=== PATIENT | male | born 1955 | race Hispanic/Latino ===

== ENCOUNTER 2018-12-04 16:05 | Inpatient (IN) | payer MEDICARE ==
[2018-12-04] MEDS ORDERED: NACL 0.9% 500 ML 500 ML IV ONE (17:06)
[2018-12-04 17:35] LABS: Hematocrit 37.5 % (35.5-45.6); Hemoglobin 12.7 gm/dl (11.8-15.2); Mean Corpuscular HGB Conc 34 % (32-34); Mean Corpuscular Volume 90 fl (84-94); Platelet Count 157 K/mm3 (140-440); Red Blood Count 4.19 M/mm3 (3.65-5.03); Red Cell Distribution Width 14.7 % (13.2-15.2)
[2018-12-04 17:54] LABS: INR 0.99 (0.87-1.13)
--- NOTE | 2018-12-04 17:57 | XRay Report ---
PROCEDURE: XR CHEST 1V AP TECHNIQUE: Chest radiograph single view. HISTORY: syncope COMPARISONS: None . FINDINGS: Limited examination due to prominent soft tissue attenuation. Posterior lung bases partly obscured. There is no visible pulmonary consolidation. No evidence of pneumothorax. No radiographically visible pleural effusion. Cardiac silhouette size is normal without vascular congestion. No visible acute displaced fracture in the regional skeleton. IMPRESSION: No acute cardiopulmonary disease in the visualized chest. This document is electronically signed by Ulysses Durbin MD., December 04 2018 05:55:29 PM ET
[2018-12-04 17:58] LABS: Albumin 3.7 g/dL (3.9-5); Calcium 9.1 mg/dL (8.4-10.2)
--- NOTE | 2018-12-04 18:13 | Cat Scan Report ---
PROCEDURE: CT HEAD/BRAIN WO CON TECHNIQUE: Computerized tomography of the head was performed without contrast material. CT DOSE LENGTH PRODUCT: 920.5 mGycm HISTORY: neck pain after fall COMPARISONS: None . FINDINGS: Skull and scalp: Normal . Paranasal sinuses: Normal . Ventricles and subarachnoid spaces: Normal . Cerebrum: No evidence of hemorrhage, acute infarction or mass . There is an area of low density in t he left frontal region periventricular white matter consistent with small vessel ischemic changes. Th ere are small areas of remote infarct in the occipital lobes bilaterally. Cerebellum and brainstem: No evidence of hemorrhage, acute infarction or mass . Vasculature: Normal . Other: None . ASPECTS: 10 IMPRESSION: No acute intracranial abnormality. Small areas of remote infarct or small vessel ischemic changes as described. This document is electronically signed by Shital Leroy MD., December 04 2018 06:11:47 PM ET
--- NOTE | 2018-12-04 18:22 | Emergency Department Report ---
ED General Adult HPI - General Chief complaint: Weakness Stated complaint: WEAKNESS Time Seen by Provider: 12/04/18 16:48 Source: patient, EMS (ems notes not available at time of chart dictation), RN notes reviewed, old records reviewed Mode of arrival: Stretcher Limitations: Other (the patient is a poor historian.) - History of Present Illness Initial comments: Primary care Dr.: Dr. 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 This is a 63-year-old gentleman. The patient is not known to this provider previously. The patient presents to the emergency room with a complaint of weakness. He describes the weakness as mostly painless, and present for 3-4 weeks. He reports that occasionally he feels drowsy, and has difficulty finding words. He denies extremity weakness or numbness. He denies chest pain. He denies shortness of breath. He has chronic abdominal discomfort which is not a new, worsened or different. He denies urinary symptoms. He also complains of aches and pains in his bilate ral shoulders, elbows, hips, lower back, knees and ankles. He reports that his insurance company sent a nurse to evaluate him at home, this past Monday, and reports that her evaluation was unremarkable. The patient is not able to describe exacerbating or relieving factors. He also states that over the weekend, he was standing in front of his bed, and either passed out, or fell onto his bed. He is not sure. He has a headache, which is global, and paraspinal neck pain. The headache is mostly resolved, and he indicates that it was not sudden or thunderclap in nature. The patient is tangential in his history, and difficult to redirect. The patient is a poor historian. -: week(s) Location: left, right, upper extremity Radiation: non-radiation Quality: aching Consistency: intermittent Improves with: rest Worsens with: movement - Related Data Home Medications Medication Instructions Recorded Confirmed Last Taken Fluticasone Propionate [Flovent 50 mcg IH PRN 12/04/18 12/04/18 Unknown Diskus] Lisinopril/Hydrochlorothiazide 1 each PO DAILY 12/04/18 12/04/18 Unknown [Zestoretic 10-12.5 mg Tablet] Metoprolol [Lopressor TAB] 50 mg PO BID 12/04/18 12/04/18 Unknown Pravastatin [Pravachol] 20 mg PO DAILY 12/04/18 12/04/18 Unknown QUEtiapine [SEROquel] 100 mg PO HS 12/04/18 12/04/18 Unknown Tamsulosin [Flomax] 0.4 mg PO QDAY 12/04/18 12/04/18 Unknown Venlafaxine ER 150 mg PO DAILY 12/04/18 12/04/18 Unknown rOPINIRole [Requip] 1 mg PO QHS 12/04/18 12/04/18 Unknown Allergies Allergy/AdvReac Type Severity Reaction Status Date / Time No Known Allergies Allergy Verified 12/04/18 20:26 ED Review of Systems ROS: Stated complaint: WEAKNESS Other details as noted in HPI Constitutional: malaise. denies: fever Eyes: other (patient is blind. No change in visual acuity.) ENT: denies: epistaxis Respiratory: denies: cough Cardiovascular: denies: chest pain Gastrointestinal: denies: nausea, vomiting, diarrhea Genitourinary: denies: dysuria Musculoskeletal: arthralgia, myalgia Neurological: headache Psychiatric: anxiety ED Past Medical Hx - Past Medical History Previous Medical History?: Yes Hx Hypertension: Yes Additional medical history: high cholesterol. wrestless leg syndrome. BPH - Surgical History Past Surgical History?: Yes Additional Surgical History: knee surgery - Social History Smoking Status: Never Smoker Substance Use Type: None - Medications Home Medications: Home Medications Medication Instructions Recorded Confirmed Last Taken Type Fluticasone Propionate [Flovent 50 mcg IH PRN 12/04/18 12/04/18 Unknown History Diskus] Lisinopril/Hydrochlorothiazide 1 each PO DAILY 12/04/18 12/04/18 Unknown History [Zestoretic 10-12.5 mg Tablet] Metoprolol [Lopressor TAB] 50 mg PO BID 12/04/18 12/04/18 Unknown History Pravastatin [Pravachol] 20 mg PO DAILY 12/04/18 12/04/18 Unknown History QUEtiapine [SEROquel] 100 mg PO HS 12/04/18 12/04/18 Unknown History Tamsulosin [Flomax] 0.4 mg PO QDAY 12/04/18 12/04/18 Unknown History Venlafaxine ER 150 mg PO DAILY 12/04/18 12/04/18 Unknown History rOPINIRole [Requip] 1 mg PO QHS 12/04/18 12/04/18 Unknown History ED Physical Exam - General Limitations: Other (patient is a poor historian. Patient is legally blind.) General appearance: alert, anxious, obese - Head Head exam: Present: atraumatic, normocephalic - Eye Eye exam: Present: EOMI, other (patient able to identify this examiners glasses, vela, and white coat) - ENT ENT exam: Present: normal exam, normal orophraynx, mucous membranes moist, normal external ear exam - Neck Neck exam: Present: normal inspection, full ROM. Absent: tenderness, meningismus - Respiratory Respiratory exam: Present: normal lung sounds bilaterally. Absent: respiratory distress - Cardiovascular Cardiovascular Exam: Present: regular rate, normal rhythm, normal heart sounds. Absent: bradycardia, tachycardia, irregular rhythm, systolic murmur, diastolic murmur, rubs, gallop - GI/Abdominal GI/Abdominal exam: Present: soft, other (chronic appearing surgical scar is noted. Hyperpigmented tissue is noted.). Absent: distended, tenderness, guarding, rebound, rigid, pulsatile mass - Rectal Rectal exam: Present: deferred - Extremities Exam Extremities exam: Present: normal inspection, full ROM, other (2+ pulses noted in the bilateral upper, lower extremities. Compartments soft. No long bony tenderness. The pelvis is stable.). Absent: calf tenderness - Back Exam Back exam: Present: normal inspection, full ROM. Absent: tenderness, CVA tenderness (R), CVA tenderness (L), paraspinal tenderness, vertebral tenderness - Neurological Exam Neurological exam: Present: alert, other (Extraocular movements intact. Tongue midline. No facial droop. Facial sensation intact to light touch in the V1, V2, V3 distribution bilaterally. 5 and 5 strength in 4 extremities.. Sensation is intact to light touch in 4 extremities.). Absent: motor sensory deficit - Psychiatric Psychiatric exam: Present: normal affect, normal mood, anxious - Skin Skin exam: Present: warm, dry, intact, normal color. Absent: rash ED Course Vital Signs 12/04/18 12/04/18 12/04/18 15:54 16:46 16:48 Temperature 97.9 F 97.9 F Pulse Rate 108 H 76 Respiratory 16 16 Rate Blood Pressure 115/71 Blood Pressure 129/69 [Right] O2 Sat by Pulse 99 94 Oximetry 12/04/18 12/04/18 12/04/18 17:02 17:16 17:30 Temperature Pulse Rate Respiratory Rate Blood Pressure Blood Pressure [Right] O2 Sat by Pulse 94 95 99 Oximetry 12/04/18 12/04/18 12/04/18 17:56 18:00 18:15 Temperature Pulse Rate Respiratory Rate Blood Pressure 118/79 118/79 Blood Pressure [Right] O2 Sat by Pulse 98 98 85 Oximetry 12/04/18 12/04/18 12/04/18 18:31 18:45 19:01 Temperature Pulse Rate Respiratory Rate Blood Pressure 144/86 144/86 132/58 Blood Pressure [Right] O2 Sat by Pulse 93 93 92 Oximetry 12/04/18 12/04/18 12/04/18 19:11 19:21 19:31 Temperature Pulse Rate 78 73 Respiratory 16 17 Rate Blood Pressure 132/58 132/58 132/58 Blood Pressure [Right] O2 Sat by Pulse 94 87 93 Oximetry 12/04/18 12/04/18 12/04/18 19:39 19:41 19:51 Temperature Pulse Rate 74 69 75 Respiratory 18 19 16 Rate Blood Pressure 116/56 132/58 Blood Pressure 116/56 [Right] O2 Sat by Pulse 94 90 Oximetry 12/04/18 20:01 Temperature Pulse Rate 71 Respiratory 18 Rate Blood Pressure 113/76 Blood Pressure [Right] O2 Sat by Pulse 94 Oximetry - Reevaluation(s) Reevaluation #1: 12/04/18 18:22 Differential diagnosis, including not limited to: Arthritis, fibromyalgia, myositis, medication side effect, orthostasis, vagal event, structural cardiac disease, intracranial injury, cervical spine injury, [place] II disorder Assessment and plan: 63-year-old gentleman with a primary complaint of weakness, and multiple other complaints, including intermittent word finding difficulty, nonspecific arthralgias, questionable word finding difficulty for the past 3 weeks. Objectively speaking, the patient is alert to name, location, date and month. He is able to tell me the name of his insurance company, and can tell me that a nurse came by to see him this week for his nonspecific arthralgias. He is no focal motor or sensory deficits, there is no obvious facial droop, and he has an unremarkable neurologic examination, with the exception of poor baseline vision. He is somewhat tangential in his history, but does not appear to be homicidal or suicidal, and has not demonstrated that he is not able to care for himself. He is plugged in with a good primary care doctor, and so far his objective laboratory testing and physical examination is unremarkable. I find him to be low risk by well's criteria, he is not tachycardic, he is not hypoxic, he has a negative d-dimer. Thus far, objective testing appears to be unremarkable, and it is unlikely that the patient will have an emergency medical condition that requires admission to the hospital. He will likely benefit from follow-up with an outpatient neurologist, or neuropsychiatrist for his nonspecific symptoms. Reevaluation #2: 12/04/18 18:45 Change in plans. Patient found to have acute renal insufficiency. This, in conjunction with his reported episode of syncope and fatigue, qualifies him for hospital admission and further evaluation. As far as the patient knows, he does not have a history of renal insufficiency. He now endorses additional symptoms, such as getting up at night, possibly sleepwalking, and endorses that he is seeing people at night. He is taking Ropinirole He does not meet 1013 criteria, but we will admit to the hospital for unexplained syncope, and further evaluation of acute renal insufficiency. A psychiatric consultation has been requested. The patient may benefit from having his multiple sedating medications examined. Will defer to the inpatient team. Reevaluation #3: 12/04/18 19:41 JOVANNY Yuen to admit to the medical service for kike and syncope ED Medical Decision Making - Lab Data Result diagrams: 12/05/18 05:00 12/05/18 05:00 Vital Signs 12/04/18 12/04/18 16:46 16:48 Temperature 97.9 F 97.9 F Pulse Rate 76 Respiratory 16 16 Rate Blood Pressure 115/71 Blood Pressure 129/69 [Right] O2 Sat by Pulse 99 94 Oximetry Lab Results 12/04/18 12/04/18 12/04/18 Range/Units 17:19 17:19 17:19 WBC 4.8 (4.5-11.0) K/mm3 RBC 4.19 (3.65-5.03) M/mm3 Hgb 12.7 (11.8-15.2) gm/dl Hct 37.5 (35.5-45.6) % MCV 90 (84-94) fl MCH 30 (28-32) pg MCHC 34 (32-34) % RDW 14.7 (13.2-15.2) % Plt Count 157 (140-440) K/mm3 PT 13.7 (12.2-14.9) Sec. INR 0.99 (0.87-1.13) D-Dimer 135.00 (0-234) ng/mlDDU Sodium 138 (137-145) mmol/L Potassium 4.3 (3.6-5.0) mmol/L Chloride 97.5 L (98-107) mmol/L Carbon Dioxide 29 (22-30) mmol/L Anion Gap 16 mmol/L Glucose 75 (75-100) mg/dL Calcium 9.1 (8.4-10.2) mg/dL Magnesium 1.90 (1.7-2.3) mg/dL Total Bilirubin 0.70 (0.1-1.2) mg/dL AST 20 (5-40) units/L Alkaline Phosphatase 87 (35-129) units/L Total Protein 6.6 (6.3-8.2) g/dL Albumin 3.7 L (3.9-5) g/dL Albumin/Globulin Ratio 1.3 % TSH (0.270-4.200) mlU/mL 12/04/18 Range/Units 17:19 WBC (4.5-11.0) K/mm3 RBC (3.65-5.03) M/mm3 Hgb (11.8-15.2) gm/dl Hct (35.5-45.6) % MCV (84-94) fl MCH (28-32) pg MCHC (32-34) % RDW (13.2-15.2) % Plt Count (140-440) K/mm3 PT (12.2-14.9) Sec. INR (0.87-1.13) D-Dimer (0-234) ng/mlDDU Sodium (137-145) mmol/L Potassium (3.6-5.0) mmol/L Chloride (98-107) mmol/L Carbon Dioxide (22-30) mmol/L Anion Gap mmol/L Glucose (75-100) mg/dL Calcium (8.4-10.2) mg/dL Magnesium (1.7-2.3) mg/dL Total Bilirubin (0.1-1.2) mg/dL AST (5-40) units/L Alkaline Phosphatase (35-129) units/L Total Protein (6.3-8.2) g/dL Albumin (3.9-5) g/dL Albumin/Globulin Ratio % TSH 2.640 (0.270-4.200) mlU/mL - EKG Data -: EKG Interpreted by Mo EKG shows normal: sinus rhythm Rate: normal - EKG Data When compared to previous EKG there are: previous EKG unavailable 12/04/18 18:46 This is a normal sinus rhythm, 61 bpm, normal axis, QTC 421 ms, motion artifact, not endorsing chest pain, this is an abnormal EKG, this EKG is not consistent with ST elevation myocardial infarction. - Radiology Data Radiology results: report reviewed, image reviewed CT scan of the brain, cervical spine negative for acute traumatic disease. Multiple incidental findings noted. X-ray of the chest is negative for acute disease. Critical care attestation.: If time is entered above; I have spent that time in minutes in the direct care of this critically ill patient, excluding procedure time. ED Disposition Clinical Impression: ARF (acute renal failure), History of syncope, Polyarthritis Disposition: OP ADMIT IP TO THIS HOSP Is pt being admited?: Yes Condition: Good
--- NOTE | 2018-12-04 18:25 | Cat Scan Report ---
PROCEDURE: CT CERVICAL SPINE WO CON TECHNIQUE: Computerized tomography of the cervical spine was performed from the skull base to T1 wit hout contrast material. CT DOSE LENGTH PRODUCT: 823.2 mGycm HISTORY: ? syncope headache COMPARISONS: None . FINDINGS: There is mild reversal of the normal lordotic curve of the cervical spine. There is loss of height of the C3 and C4 vertebra. There is the appearance of ankylosis of the C5-C7 vertebra with ossification of the anterior and post erior longitudinal ligaments at these levels. There is loss of height of the C7-T1 disc with associated degenerative endplate change. This is the l evel below the ankylosis. There is multiple level degenerative facet change. There is multiple level bony canal and foraminal stenosis secondary to spondylitic change. Visualization of detail of the contents of the cervical canal is limited by artifact. There is no definite plain film evidence of acute fracture. There is mild anterolisthesis of C4 on C5 secondary to degenerative facet change at this level. The paraspinous soft tissues are unremarkable. IMPRESSION: 1. Cervical spondylosis with multiple level canal and foraminal stenosis. 2. 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 3. Loss of height of the C3 and C4 vertebra without definite plain film evidence of acute fracture. MRI may be helpful for further evaluation. This document is electronically signed by Falguni Campo MD., December 04 2018 06:22:54 PM ET
[2018-12-04] MEDS ORDERED: TYLENOL PO ONE (18:48)
[2018-12-04 19:13] LABS: Bilirubin,Urine NEG (Negative); Blood,Urine NEG (Negative); Color,Urine Yellow (Yellow); Mucus,Urine FEW /HPF; Protein,Urine <15 mg/dL mg/dL (Negative)
[2018-12-04] MEDS ORDERED: SODIUM CHLORIDE FLUSH SYRINGE 10 ML IV PRN ×2 (20:10→20:12)
[2018-12-04] MEDS ORDERED: ZOFRAN IV PRN (20:10)
[2018-12-04] MEDS ORDERED: TYLENOL PO PRN (20:10)
[2018-12-04] MEDS ORDERED: PROVENTIL IH PRN (20:21)
--- NOTE | 2018-12-04 21:15 | History and Physical Report ---
History of Present Illness Date of examination: 12/04/18 Date of admission: 12/04/2018 Chief complaint: Generalized weakness and syncope History of present illness: 60-year-old male with history of hypertension, BPH, HLD, anxiety presents to [facility] ED via EMS with complaints of weakness. He states that he's been experiencing generalized weakness for past 3-4 weeks with questionable syncopal episodes. He states that he's been experiencing increased difficulty finding words to express himself. Of note there is a questionable psychiatric history for this patient. Current meds include: Seroquel, Requip, and venlafaxine. Patient states that he has insomnia, sleep walks, and is able to 3- 4 people in an empty room. Patient is a poor historian and is unable to provide specific details. Denies dyspnea, chest pain, cough, hemoptysis, headache, nausea, vomiting, fever, recent travel, or recent sick contact Past History Past Medical History: hypertension, hyperlipidemia, other (BPH, anxiety, restless leg syndrome) Past Surgical History: Other (renal surgery, hernia repair, knee surgery) Social history: no significant social history Family history: no significant family history Medications and Allergies Allergies Allergy/AdvReac Type Severity Reaction Status Date / Time No Known Allergies Allergy Verified 12/04/18 20:26 Home Medications Medication Instructions Recorded Confirmed Last Taken Type Fluticasone Propionate [Flovent 50 mcg IH PRN 12/04/18 12/04/18 Unknown History Diskus] Lisinopril/Hydrochlorothiazide 1 each PO DAILY 12/04/18 12/04/18 Unknown History [Zestoretic 10-12.5 mg Tablet] Metoprolol [Lopressor TAB] 50 mg PO BID 12/04/18 12/04/18 Unknown History Pravastatin [Pravachol] 20 mg PO DAILY 12/04/18 12/04/18 Unknown History QUEtiapine [SEROquel] 100 mg PO HS 12/04/18 12/04/18 Unknown History Tamsulosin [Flomax] 0.4 mg PO QDAY 12/04/18 12/04/18 Unknown History Venlafaxine ER 150 mg PO DAILY 12/04/18 12/04/18 Unknown History rOPINIRole [Requip] 1 mg PO QHS 12/04/18 12/04/18 Unknown History Active Meds: Active Medications Acetaminophen (Tylenol) 650 mg PO Q4H PRN PRN Reason: Pain MILD(1-3)/Fever >100.5/SANTANA Albuterol (Proventil) 2.5 mg IH Q4HRT PRN PRN Reason: Shortness Of Breath Aspirin (Baby Aspirin) 81 mg PO QDAY [facility] Budesonide (Pulmicort) 0.5 mg IH Q12HRT [facility] Heparin Sodium (Porcine) (Heparin) 5,000 unit SUB-Q Q12HR [facility] Sodium Chloride (Nacl 0.9% 1000 Ml) 1,000 mls @ 125 mls/hr IV DIRECT [facility] Metoprolol Tartrate (Lopressor) 50 mg PO BID [facility] Ondansetron HCl (Zofran) 4 mg IV Q8H PRN PRN Reason: Nausea And Vomiting Oxycodone/Acetaminophen (Percocet 5/325) 1 tab PO Q6H PRN PRN Reason: Pain, Moderate (4-6) Pravastatin Sodium (Pravachol) 20 mg PO DAILY [facility] Quetiapine Fumarate (Seroquel) 100 mg PO HS [facility] Ropinirole HCl (Requip) 1 mg PO QHS [facility] Sodium Chloride (Sodium Chloride Flush Syringe 10 Ml) 10 ml IV BID [facility] Sodium Chloride (Sodium Chloride Flush Syringe 10 Ml) 10 ml IV PRN PRN PRN Reason: LINE FLUSH Sodium Chloride (Sodium Chloride Flush Syringe 10 Ml) 10 ml IV PRN PRN PRN Reason: LINE FLUSH Tamsulosin HCl (Flomax) 0.4 mg PO QDAY [facility] Venlafaxine HCl (Effexor Xr) 75 mg PO QDAY [facility] Review of Systems All systems: negative (reviewed and no additional remarkable complaints except as noted below) Constitutional: weakness Psychiatric: change in sleep habits, sleep disturbances, insomnia Exam - Physical Exam Narrative exam: Physical exam General appearance: Present: No acute distress, alert, oriented to person, place, self and situation, - EENT Eyes: Present: PERRL, EOM intact ENT: hearing intact, normal dentition - Neck Neck: Present: supple, normal ROM - Respiratory Respiratory effort: Non-labored Respiratory: Clear throughout - Cardiovascular Heart rate: 61 (bpm) Rhythm: regular Heart Sounds: Present: S1 & S2. Absent: rub, click - Extremities Extremities: no ischemia, pulses intact, - Peripheral Assessment Peripheral Pulses: within normal limits - Abdominal General gastrointestinal: soft, non-tender, normal bowel sounds, surgical scar noted partially healed with areas of chronically delayed wound healing - Integumentary Integumentary: Present: warm, dry - Musculoskeletal Musculoskeletal: generalized weakness - Psychiatric Psychiatric: Poor historian, cooperative - Constitutional Vitals: Temp Pulse Resp BP Pulse Ox 97.9 F 74 18 116/56 92 12/04/18 16:48 12/04/18 19:39 12/04/18 19:39 12/04/18 19:39 12/04/18 19:01 Results - Labs CBC & Chem 7: 12/04/18 17:19 12/04/18 17:19 Labs: Laboratory Last Values WBC 4.8 K/mm3 (4.5-11.0) 12/04/18 17: RBC 4.19 M/mm3 (3.65-5.03) 12/04/18 17:19 Hgb 12.7 gm/dl (11.8-15.2) 12/04/18 17:19 Hct 37.5 % (35.5-45.6) 12/04/18 17:19 MCV 90 fl (84-94) 12/04/18 17:19 MCH 30 pg (28-32) 12/04/18 17: MCHC 34 % (32-34) 12/04/18 17:19 RDW 14.7 % (13.2-15.2) 12/04/18 17:19 Plt Count 157 K/mm3 (140-440) 12/04/18 17: PT 13.7 Sec. (12.2-14.9) 12/04/18 17:19 INR 0.99 (0.87-1.13) 12/04/18 17:19 135.00 ng/mlDDU (0-234) 12/04/18 17:19 Sodium 138 mmol/L (137-145) 12/04/18 17:19 Potassium 4.3 mmol/L (3.6-5.0) 12/04/18 17:19 Chloride 97.5 mmol/L (98-107) L 12/04/18 17:19 Carbon Dioxide 29 mmol/L (22-30) 12/04/18 17:19 16 mmol/L 12/04/18 17:19 BUN 29 mg/dL (9-20) H 12/04/18 17:19 2.4 mg/dL (0.8-1.5) H 12/04/18 17:19 Estimated GFR 27 ml/min 12/04/18 17:19 12 % 12/04/18 17:19 Glucose 75 mg/dL (75-100) 12/04/18 17:19 Calcium 9.1 mg/dL (8.4-10.2) 12/04/18 17:19 Magnesium 1.90 mg/dL (1.7-2.3) 12/04/18 17:19 0.70 mg/dL (0.1-1.2) 12/04/18 17:19 AST 20 units/L (5-40) 12/04/18 17:19 ALT 25 units/L (7-56) 12/04/18 17:19 87 units/L (35-129) 12/04/18 17:19 133 units/L (55-170) 12/04/18 17:19 6.6 g/dL (6.3-8.2) 12/04/18 17:19 3.7 g/dL (3.9-5) L 12/04/18 17:19 1.3 % 12/04/18 17:19 TSH 2.640 mlU/mL (0.270-4.200) 12/04/18 17:19 Yellow (Yellow) 12/04/18 18:40 Clear (Clear) 12/04/18 18:40 5.0 (5.0-7.0) 12/04/18 18:40 Ur Specific [place] 1.014 (1.003-1.030) 12/04/18 18:40 <15 mg/dl mg/dL (Negative) 12/04/18 18:40 Neg mg/dL (Negative) 12/04/18 18:40 Neg mg/dL (Negative) 12/04/18 18:40 Neg (Negative) 12/04/18 18:40 Neg (Negative) 12/04/18 18:40 Neg (Negative) 12/04/18 18:40 4.0 mg/dL (<2.0) 12/04/18 18:40 Ur Leukocyte Esterase Neg (Negative) 12/04/18 18:40 1.0 /HPF (0.0-6.0) 12/04/18 18:40 1.0 /HPF (0.0-6.0) 12/04/18 18:40 U Epithel Cells (Auto) < 1.0 /HPF (0-13.0) 12/04/18 18:40 Few /HPF 12/04/18 18:40 - Imaging and Cardiology EKG: image reviewed (sinus rhythm, 61 bpm) Chest x-ray: image reviewed (No acute cardiopulmonary abnormalities) CT Scan - head: report reviewed (No acute intracranial abnormality. Small areas of remote infarct or small vessel ), image reviewed Imaging and Cardiology: CT Cervical Spine: Findings : Cervical spondylosis with multiple level canal and foraminal stenosis. 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 Loss of height of the C3 and C4 vertebra without definite plain film evidence of acute fracture Assessment and Plan Assessment and plan: 60-year-old male with history of hypertension, BPH, HLD, anxiety presents to [facility] ED via EMS with complaints of weakness. Patient has questi onable psychiatric history and is on multiple antipsychotic medication. Patient states that he sleep walks and can see 3-4 student people in the room at the time. He is able to watch TV when it is turned off and recall the entire program viewed. CT head did not reveal any acute intracranial abnormalities. Patient was found he can acute renal failure with BUN/CR of 29/2.4. Will admit as OBS to Telemetry for further evaluation. ARF Syncope Hypertension BPH HLD Anxiety Suspicion of psychiatric disorder Plan: Continue supportive care Neurochecks per protocol Continuous Telemetry monitoring Gentle hydration with IVF; if no improvement will consider consult to nephrology Bilateral carotid duplex, echo, Lexiscan pending Monitor BP Metoprolol 50 mg twice a day Resume home dose Flomax Resume home meds: Seroquel, Requip, venlafaxine Start ASA 81mg Resume home statin: Pravastatin 20mg daily Psych consult pending PT/OT consult pending DVT on heparin and SCD's Advance Directives: No VTE prophylaxis?: Mechanical Plan of care discussed with patient/family: Yes
[2018-12-04] MEDS: HEPARIN SUB-Q SCH (22:12)
[2018-12-04] MEDS: LOPRESSOR PO SCH (22:12)
[2018-12-04] MEDS: REQUIP PO SCH (22:12)
[2018-12-04] MEDS: NACL 0.9% 1000 ML 1,000 ML IV SCH (22:12)
[2018-12-04] MEDS: SODIUM CHLORIDE FLUSH SYRINGE 10 ML IV SCH (22:13)
[2018-12-05] MEDS: NACL 0.9% 1000 ML 1,000 ML IV SCH ×2 (05:20→23:53)
[2018-12-05 06:51] LABS: Eosinophils # (Auto) 0.1 K/mm3 (0.0-0.4); Eosinophils % (Auto) 3.6 % (0.0-4.3); Hematocrit 39.4 % (35.5-45.6); Hemoglobin 13.2 gm/dl (11.8-15.2); Lymphocytes # (Auto) 1.3 K/mm3 (1.2-5.4); Lymphocytes % (Auto) 33.9 % (13.4-35.0); Mean Corpuscular HGB Conc 34 % (32-34); Mean Corpuscular Volume 89 fl (84-94); Monocytes # (Auto) 0.4 K/mm3 (0.0-0.8); Monocytes % (Auto) 9.6 % (0.0-7.3); Red Blood Count 4.41 M/mm3 (3.65-5.03); Red Cell Distribution Width 14.9 % (13.2-15.2)
[2018-12-05 07:39] LABS: Calcium 8.7 mg/dL (8.4-10.2); Chol/HDL Ratio 4.12 %
[2018-12-05 08:12] LABS: Platelet Count 138 K/mm3 (140-440)
[2018-12-05] MEDS ORDERED: LEXISCAN IV ONE ×3 (08:45→10:32)
[2018-12-05] MEDS: PULMICORT IH SCH ×2 (09:05→19:52)
[2018-12-05] MEDS ORDERED: EFFEXOR XR PO SCH (10:00)
--- NOTE | 2018-12-05 11:30 | XRay Report ---
Chest 2 views: Compared to 64/. History: Shortness of breath. Findings: Cardiomegaly. Trachea is midline. No consolidation, pneumothorax or pleural effusions. Impression No acute cardiopulmonary findings.
--- NOTE | 2018-12-05 12:30 | Vascular Lab Report ---
PROCEDURE: VL CAROTID DUPLEX BILAT TECHNIQUE: Duplex Doppler ultrasound examination of the cervical arteries bilaterally. Note: Measurement of carotid stenosis is based on flow velocity values that correlate with the [place] Symptomatic Carotid Endarterectomy Trial (NASCET) based stenosis criteria using the internal carotid artery diameter as the denominator for stenosis calculation. HISTORY: syncope COMPARISONS: None FINDINGS: Echogenic plaque is slight without evidence of ulceration in the carotid artery system bilaterally. Peak systolic CCA and ICA velocities are within normal limits bilaterally corresponding to estimated diameter stenosis of 16 to 49 %. ICA/CCA peak systolic ratios are within normal limits: Right: 0.51 Left: 0.70 Flow is antegrade in both vertebral arteries. No evidence of aneurysm or occlusion. IMPRESSION: Bilateral carotid artery atherosclerotic change No hemodynamically significant stenosis (<50% diameter) based on ratios, velocities, and color Dopple r images. This document is electronically signed by Ulysses Durbin MD., December 05 2018 12:28:27 PM ET
--- NOTE | 2018-12-05 13:54 | Treadmill Report ---
LEXISCAN STRESS TEST REPORT REASON FOR STUDY: Chest pain. STRESS TEST PROTOCOL: The patient received 0.4 mg of Lexiscan intravenously over 10 seconds. Tc-99m tetrofosmin was subsequently injected. Baseline ECG, normal sinus rhythm. Lexiscan ECG, no ischemic changes. No chest pain. No arrhythmias. IMPRESSION: Electrocardiographically negative stress test. Nuclear imaging report to follow. JOB# [id number] DELBERT/NTS
--- NOTE | 2018-12-05 14:03 | Consultation ---
History of Present Illness - Reason for Consult Consult date: 12/05/18 Reason for consult: Initial Psychiatric Evaluation - Chief Complaint Chief complaint: " I was in a lot pain all over my body" - History of Present Psychiatric Illness Patient is a 63 year old male who presents to [facility] with complaints of weakness. He states that he's been experiencing generalized weakness for the past 3-4 weeks with questionable syncopal episodes. Patient has a PMH of hypertension, BPH, and HLD. Psychiatry was consulted because of visual hallucinations. Per record patient states that he can see people. Today the patient is calm and cooperative during the assessment. PPHx MDD (2015). Patient reports that he was diagnosed with depression after his in 2016. Patient endorses anhedonia, decrease energy, decrease appetite, decrease sleep, visual/auditory hallucinations. Per patient his symptoms have been o ngoing for approximately 3 years. Patient denies SI/HI's and delusions. Current Psychiatric Medications: Effexor XR 150mg po QAM depression/anxiety- compliant, Seroquel 100mg po QHS mood/psychosis- compliant . Provider seen patient prescription bottles. Past Psychiatric History: MDD (2016) ; no inpatient psychiatric hospitalizations ; no previous suicide attempts; no outpatient psychiatrist. Past Medication Trials: " No other psychiatric medication other than Gabapentin- I stopped taking it because it made me feel weird. " History of Drug/ Alcohol Abuse: Patient denies. 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 Family History of Psychiatric Illness/Substance Abuse: Patient denies. Medications and Allergies Allergies Allergy/AdvReac Type Severity Reaction Status Date / Time No Known Allergies Allergy Verified 12/04/18 20:26 Home Medications Medication Instructions Recorded Confirmed Last Taken Type Fluticasone Propionate [Flovent 50 mcg IH PRN 12/04/18 12/04/18 Unknown History Diskus] Lisinopril/Hydrochlorothiazide 1 each PO DAILY 12/04/18 12/04/18 Unknown History [Zestoretic 10-12.5 mg Tablet] Metoprolol [Lopressor TAB] 50 mg PO BID 12/04/18 12/04/18 Unknown History Pravastatin [Pravachol] 20 mg PO DAILY 12/04/18 12/04/18 Unknown History QUEtiapine [SEROquel] 100 mg PO HS 12/04/18 12/04/18 Unknown History Tamsulosin [Flomax] 0.4 mg PO QDAY 12/04/18 12/04/18 Unknown History Venlafaxine ER 150 mg PO DAILY 12/04/18 12/04/18 Unknown History rOPINIRole [Requip] 1 mg PO QHS 12/04/18 12/04/18 Unknown History Active Meds: Active Medications Acetaminophen (Tylenol) 650 mg PO Q4H PRN PRN Reason: Pain MILD(1-3)/Fever >100.5/SANTANA Albuterol (Proventil) 2.5 mg IH Q4HRT PRN PRN Reason: Shortness Of Breath Aspirin (Baby Aspirin) 81 mg PO QDAY [facility] Budesonide (Pulmicort) 0.5 mg IH Q12HRT [facility] Last Admin: 12/05/18 09:05 Dose: Not Given Documented by: Heparin Sodium (Porcine) (Heparin) 5,000 unit SUB-Q Q12HR [facility] Last Admin: 12/04/18 22:12 Dose: 5,000 unit Documented by: Sodium Chloride (Nacl 0.9% 1000 Ml) 1,000 mls @ 125 mls/hr IV DIRECT [facility] Last Admin: 12/05/18 05:20 Dose: 125 mls/hr Documented by: Metoprolol Tartrate (Lopressor) 50 mg PO BID [facility] Last Admin: 12/04/18 22:12 Dose: 50 mg Documented by: Ondansetron HCl (Zofran) 4 mg IV Q8H PRN PRN Reason: Nausea And Vomiting Oxycodone/Acetaminophen (Percocet 5/325) 1 tab PO Q6H PRN PRN Reason: Pain, Moderate (4-6) Pravastatin Sodium (Pravachol) 20 mg PO DAILY [facility] Quetiapine Fumarate (Seroquel) 100 mg PO [facility] Last Admin: 12/04/18 22:13 Dose: 100 mg Documented by: Ropinirole HCl (Requip) 1 mg PO QHS [facility] Last Admin: 12/04/18 22:12 Dose: 1 mg Documented by: Sodium Chloride (Sodium Chloride Flush Syringe 10 Ml) 10 ml IV BID [facility] Last Admin: 12/04/18 22:13 Dose: 10 ml Documented by: Sodium Chloride (Sodium Chloride Flush Syringe 10 Ml) 10 ml IV PRN PRN PRN Reason: LINE FLUSH Tamsulosin HCl (Flomax) 0.4 mg PO QDAY [facility] Venlafaxine HCl (Effexor Xr) 75 mg PO QDAY [facility] Mental Status Exam - Vital signs Last Vital Signs Temp 97.7 F 12/05/18 07:59 Pulse 67 12/05/18 07:59 Resp 18 12/05/18 07:59 BP 142/96 12/05/18 10:40 Pulse Ox 93 12/05/18 07:59 - Exam Narrative exam: Mental Status Exam Appearance: calm, cooperative Behavior: regular eye contact Speech: regular rate with loud tone Mood:: "a little better" Affect: congruent with mood Thought Process: tangential, circumstantial Thought Content: + A/VH's; denies SI/HI's and delusions Motor Activity: laying in bed Cognition: A/O x 3 Insight: poor Judgment: poor Results Result Diagrams: 12/05/18 05:00 12/05/18 05:00 Abnormal lab results 12/04/18 12/05/18 12/05/18 Range/Units 17:19 05:00 05:00 WBC 3.8 L (4.5-11.0) K/mm3 Plt Count 138 L (140-440) K/mm3 [place] % (Auto) 9.6 H (0.0-7.3) % Chloride 97.5 L (98-107) mmol/L BUN 29 H 26 H (9-20) mg/dL Creatinine 2.4 H 1.9 H (0.8-1.5) mg/dL Albumin 3.7 L (3.9-5) g/dL Triglycerides 264 H (2-149) mg/dL HDL Cholesterol 31 L (40-59) mg/dL All other labs normal. Assessment and Plan Assessment and plan: Impression: PPHX MDD. MDD, recurrent, severe with psychosis. Today the patient is calm and cooperative during the assessment. Endorses depressed mood and psychosis. Recommendation/Plan: 1. Will reassess in 24 hours. 2. Restart home medications: Effexor XR 150mg po QAM depression/anxiety. Increase Seroquel 200mg po QHS psychosis/mood. Discussed possible medication induced yue in reference of Effexor. Also, discussed metabolic side effects of Seroquel. Patient verbalizes understanding. 3. Will attempt to gain collateral to determine proper disposition. Disposition: Will reassess in [address] Damari Torres.
[2018-12-05] MEDS: LOPRESSOR PO SCH (14:22)
[2018-12-05] MEDS: BABY ASPIRIN PO SCH (14:22)
[2018-12-05] MEDS: PRAVACHOL PO SCH (14:23)
[2018-12-05] MEDS: FLOMAX PO SCH (14:23)
[2018-12-05] MEDS: SODIUM CHLORIDE FLUSH SYRINGE 10 ML IV SCH ×2 (14:23→22:10)
[2018-12-05] MEDS: HEPARIN SUB-Q SCH ×2 (14:23→22:09)
--- NOTE | 2018-12-05 14:59 | Progress Note ---
Assessment and Plan Assessment and plan: 60-year-old male with history of hypertension, BPH, HLD, anxiety presents to [facility] ED via EMS with complaints of weakness. Patient has psychiatric history and is on multiple antipsychotic medication. Patient states that he sleep walks and can see 3-4 student people in the room at the time. CT head did not reveal any acute intracranial abnormalities. Patient was found to have acute renal failure with BUN/CR of 29/2.4, admitted Syncope Hypertension BPH HLD Anxiety Psychosis Plan: Continue supportive care Neurochecks per protocol Continuous Telemetry monitoring Gentle hydration with IVF; Consult nephrology Bilateral carotid duplex, echo, Monitor BP Metoprolol 50 mg twice a day Resume home dose Flomax Resume home meds: Seroquel, Requip, venlafaxine Started ASA 81mg Resume home statin: Pravastatin 20mg daily Psych consulted PT/OT consulted DVT on heparin and SCD's Stress test normal but reduced EF History Interval history: Syncope Generalized weakness Hallucinations-sees people Hospitalist Physical - Physical exam Narrative exam: Gen: Not in acute distress, lying in bed, obese HEENT: Normocephalic, atraumatic Neck: supple, no JVD Heart: S1 and S2 reg, no murmurs, rubs or gallop Lungs: Clear, no crackles, no wheeze Abd: soft, non tender, non distended, normal BS Ext: No edema, no clubbing, no cyanosis, Neuro: Awake,alert, oriented x 3, moves all ext - Constitutional Vitals: Temp Pulse Resp BP Pulse Ox 97.7 F 67 18 142/96 93 12/05/18 07:59 12/05/18 07:59 12/05/18 07:59 12/05/18 10:40 12/05/18 07:59 Results - Labs CBC & Chem 7: 12/05/18 05:00 12/05/18 05:00 Labs: Laboratory Last Values WBC 3.8 K/mm3 (4.5-11.0) L 12/05/18 05:00 RBC 4.41 M/mm3 (3.65-5.03) 12/05/18 05:00 Hgb 13.2 gm/dl (11.8-15.2) 12/05/18 05:00 Hct 39.4 % (35.5-45.6) 12/05/18 05:00 MCV 89 fl (84-94) 12/05/18 05:00 MCH 30 pg (28-32) 12/05/18 05:00 MCHC 34 % (32-34) 12/05/18 05:00 RDW 14.9 % (13.2-15.2) 12/05/18 05:00 Plt Count 138 K/mm3 (140-440) L 12/05/18 05:00 Lymph % (Auto) 33.9 % (13.4-35.0) 12/05/18 05:00 [place] % (Auto) 9.6 % (0.0-7.3) H 12/05/18 05:00 Eos % (Auto) 3.6 % (0.0-4.3) 12/05/18 05:00 Baso % (Auto) 1.0 % (0.0-1.8) 12/05/18 05:00 Lymph # 1.3 K/mm3 (1.2-5.4) 12/05/18 05:00 [place] # 0.4 K/mm3 (0.0-0.8) 12/05/18 05:00 Eos # 0.1 K/mm3 (0.0-0.4) 12/05/18 05:00 Baso # 0.0 K/mm3 (0.0-0.1) 12/05/18 05:00 Seg Neutrophils % 51.9 % (40.0-70.0) 12/05/18 05:00 Seg Neutrophils # 1.9 K/mm3 (1.8-7.7) 12/05/18 05:00 PT 13.7 Sec. (12.2-14.9) 12/04/18 17:19 INR 0.99 (0.87-1.13) 12/04/18 17:19 135.00 ng/mlDDU (0-234) 12/04/18 17:19 Sodium 140 mmol/L (137-145) 12/05/18 05:00 Potassium 4.6 mmol/L (3.6-5.0) 12/05/18 05:00 Chloride 101.5 mmol/L (98-107) 12/05/18 05:00 Carbon Dioxide 27 mmol/L (22-30) 12/05/18 05:00 16 mmol/L 12/05/18 05:00 BUN 26 mg/dL (9-20) H 12/05/18 05:00 1.9 mg/dL (0.8-1.5) H 12/05/18 05:00 Estimated GFR 36 ml/min 12/05/18 05:00 14 % 12/05/18 05:00 Glucose 91 mg/dL (75-100) 12/05/18 05:00 5.5 % (4-6) 12/05/18 05:00 Calcium 8.7 mg/dL (8.4-10.2) 12/05/18 05:00 Magnesium 1.90 mg/dL (1.7-2.3) 12/04/18 17:19 0.70 mg/dL (0.1-1.2) 12/04/18 17:19 AST 20 units/L (5-40) 12/04/18 17:19 ALT 25 units/L (7-56) 12/04/18 17:19 87 units/L (35-129) 12/04/18 17:19 133 units/L (55-170) 12/04/18 17:19 < 0.010 ng/mL (0.00-0.029) 12/05/18 05:00 6.6 g/dL (6.3-8.2) 12/04/18 17:19 3.7 g/dL (3.9-5) L 12/04/18 17:19 1.3 % 12/04/18 17:19 Triglycerides 264 mg/dL (2-149) H 12/05/18 05:00 Cholesterol 128 mg/dL (50-199) 12/05/18 05:00 79 mg/dL (50-130) 12/05/18 05:00 31 mg/dL (40-59) L 12/05/18 05:00 4.12 % 12/05/18 05:00 TSH 2.640 mlU/mL (0.270-4.200) 12/04/18 17:19 Yellow (Yellow) 12/04/18 18:40 Clear (Clear) 12/04/18 18:40 5.0 (5.0-7.0) 12/04/18 18:40 Ur Specific [place] 1.014 (1.003-1.030) 12/04/18 18:40 <15 mg/dl mg/dL (Negative) 12/04/18 18:40 Neg mg/dL (Negative) 12/04/18 18:40 Neg mg/dL (Negative) 12/04/18 18:40 Neg (Negative) 12/04/18 18:40 Neg (Negative) 12/04/18 18:40 Neg (Negative) 12/04/18 18:40 4.0 mg/dL (<2.0) 12/04/18 18:40 Ur Leukocyte Esterase Neg (Negative) 12/04/18 18:40 1.0 /HPF (0.0-6.0) 12/04/18 18:40 1.0 /HPF (0.0-6.0) 12/04/18 18:40 U Epithel Cells (Auto) < 1.0 /HPF (0-13.0) 12/04/18 18:40 Few /HPF 12/04/18 18:40 Active Medications - Current Medications Current Medications: Generic Name Dose Route Start Last Admin Trade Name Freq PRN Reason Stop Dose Admin Acetaminophen 650 mg 12/04/18 20:10 Tylenol PO Q4H PRN Pain MILD(1-3)/Fever >100.5/SANTANA Albuterol 2.5 mg 12/04/18 20:21 Proventil IH Q4HRT PRN Shortness Of Breath Aspirin 81 mg 12/05/18 10:00 12/05/18 14:22 Baby Aspirin PO 81 mg QDAY MARY GRACE Administration Budesonide 0.5 mg 12/05/18 08:00 12/05/18 09:05 Pulmicort IH Not Given Q12HRT MARY GRACE Heparin Sodium (Porcine) 5,000 unit 12/04/18 22:00 12/05/18 14:23 Heparin SUB-Q 5,000 unit Q12HR MARY GRACE Administration Sodium Chloride 1,000 mls @ 125 mls/hr 12/04/18 21:00 12/05/18 05:20 Nacl 0.9% 1000 Ml IV 125 mls/hr DIRECT MARY GRACE Administration Metoprolol Tartrate 50 mg 12/04/18 22:00 12/05/18 14:22 Lopressor PO 50 mg BID MARY GRACE Administration Ondansetron HCl 4 mg 12/04/18 20:10 Zofran IV Q8H PRN Nausea And Vomiting Oxycodone/Acetaminophen 1 tab 12/04/18 20:10 Percocet 5/325 PO Q6H PRN Pain, Moderate (4-6) Pravastatin Sodium 20 mg 12/05/18 10:00 12/05/18 14:23 Pravachol PO 20 mg DAILY MARY GRACE Administration Quetiapine Fumarate 100 mg 12/04/18 22:00 12/04/18 22:13 Seroquel PO 100 mg HS MARY GRACE Administration Ropinirole HCl 1 mg 12/04/18 22:00 12/04/18 22:12 Requip PO 1 mg QHS MARY GRAEC Administration Sodium Chloride 10 ml 12/04/18 22:00 12/05/18 14:23 Sodium Chloride Flush Syringe 10 Ml IV 10 ml BID MARY GRACE Administration Sodium Chloride 10 ml 12/04/18 20:10 Sodium Chloride Flush Syringe 10 Ml IV PRN PRN LINE FLUSH Tamsulosin HCl 0.4 mg 12/05/18 10:00 12/05/18 14:23 Flomax PO 0.4 mg QDAY MRAY GRACE Administration Venlafaxine HCl 75 mg 12/05/18 10:00 12/05/18 14:22 Effexor Xr PO 75 mg QDAY [facility]ARY GRACE Administration
--- NOTE | 2018-12-05 15:33 | Treadmill Report ---
THALLIUM REPORT REASON FOR STUDY: Chest pain. IMAGING PROTOCOL: The patient received 10 mCi of Tc-99m tetrofosmin for rest imaging, and 28 mCi of Tc-99m tetrofosmin for stress imaging. Imaging for all procedures was completed 30-90 minutes following the initial injection of Technetium 99m Tetrofosmin. SPECT imaging in the 180 degree arc was performed in the right anterior oblique projection. Computerized reconstruction of the images was performed for analysis. NUCLEAR IMAGING RESULTS: Normal left ventricular cavity size with no change from stress to rest. Distribution of radionuclide within the left ventricle revealed a medium-sized area of photo-induction involving the apex. The degree of photo-induction is moderate. Rest imaging showed worsening of the defect, suggesting that it is probably artifactual. There is also a small area of photo-induction involving the anterior wall. The degree of photo-induction is mild to moderate. Rest imaging does not show any significant improvement in this defect. In addition, there is a large area of photo-induction involving the inferior wall. The degree of photo-induction is moderate to severe. Rest imaging does not show any significant improvement in this defect. Gated SPECT imaging revealed moderate global left ventricular hypokinesis. The visually estimated left ventricular ejection fraction is 40%. IMPRESSION: Medium-sized fixed apical defect, probably artifactual. Small fixed anterior defect. Large fixed inferior defect. Moderate global left ventricular hypokinesis. EF 40%. These findings suggest prior infarction in the left anterior descending and right coronary artery territories. However, a cardiomyopathic process may also be present in this patient. No evidence of significant stress-induced ischemia. [facility]# [id number] [facility]
--- NOTE | 2018-12-05 17:15 | Consultation ---
History of Present Illness Consult date: 12/05/18 Chief complaint: syncope History of present illness: This is a 63 YO M who was at home and passes out. Not a good historian so I do not have details. Very tangential. focuses on the problem being either with his kineys or breathing. Did have ARF on arrival. No further spells int he hospital. Appears to be at baseline. Past History Past Medical History: hypertension, hyperlipidemia, other (BPH, anxiety, restless leg syndrome) Past Surgical History: Other (renal surgery, hernia repair, knee surgery) Social history: no significant social history Family history: no significant family history Medications and Allergies Allergies Allergy/AdvReac Type Severity Reaction Status Date / Time No Known Allergies Allergy Verified 12/04/18 20:26 Home Medications Medication Instructions Recorded Confirmed Last Taken Type Fluticasone Propionate [Flovent 50 mcg IH PRN 12/04/18 12/04/18 Unknown History Diskus] Lisinopril/Hydrochlorothiazide 1 each PO DAILY 12/04/18 12/04/18 Unknown History [Zestoretic 10-12.5 mg Tablet] Metoprolol [Lopressor TAB] 50 mg PO BID 12/04/18 12/04/18 Unknown History Pravastatin [Pravachol] 20 mg PO DAILY 12/04/18 12/04/18 Unknown History QUEtiapine [SEROquel] 100 mg PO HS 12/04/18 12/04/18 Unknown History Tamsulosin [Flomax] 0.4 mg PO QDAY 12/04/18 12/04/18 Unknown History Venlafaxine ER 150 mg PO DAILY 12/04/18 12/04/18 Unknown History rOPINIRole [Requip] 1 mg PO QHS 12/04/18 12/04/18 Unknown History Active Meds: Active Medications Acetaminophen (Tylenol) 650 mg PO Q4H PRN PRN Reason: Pain MILD(1-3)/Fever >100.5/SANTANA Albuterol (Proventil) 2.5 mg IH Q4HRT PRN PRN Reason: Shortness Of Breath Aspirin (Baby Aspirin) 81 mg PO QDAY [facility] Last Admin: 12/05/18 14:22 Dose: 81 mg Documented by: Budesonide (Pulmicort) 0.5 mg IH Q12HRT [facility] Last Admin: 12/05/18 09:05 Dose: Not Given Documented by: Heparin Sodium (Porcine) (Heparin) 5,000 unit SUB-Q Q12HR [facility] Last Admin: 12/05/18 14:23 Dose: 5,000 unit Documented by: Sodium Chloride (Nacl 0.9% 1000 Ml) 1,000 mls @ 125 mls/hr IV DIRECT [facility] Last Admin: 12/05/18 05:20 Dose: 125 mls/hr Documented by: Ondansetron HCl (Zofran) 4 mg IV Q8H PRN PRN Reason: Nausea And Vomiting Oxycodone/Acetaminophen (Percocet 5/325) 1 tab PO Q6H PRN PRN Reason: Pain, Moderate (4-6) Pravastatin Sodium (Pravachol) 20 mg PO DAILY [facility] Last Admin: 12/05/18 14:23 Dose: 20 mg Documented by: Quetiapine Fumarate (Seroquel) 100 mg PO HS [facility] Last Admin: 12/04/18 22:13 Dose: 100 mg Documented by: Ropinirole HCl (Requip) 1 mg PO QHS [facility] Last Admin: 12/04/18 22:12 Dose: 1 mg Documented by: Sodium Chloride (Sodium Chloride Flush Syringe 10 Ml) 10 ml IV BID [facility] Last Admin: 12/05/18 14:23 Dose: 10 ml Documented by: Sodium Chloride (Sodium Chloride Flush Syringe 10 Ml) 10 ml IV PRN PRN PRN Reason: LINE FLUSH Tamsulosin HCl (Flomax) 0.4 mg PO QDAY [facility] Last Admin: 12/05/18 14:23 Dose: 0.4 mg Documented by: Venlafaxine HCl (Effexor Xr) 75 mg PO QDAY [facility] Last Admin: 12/05/18 14:22 Dose: 75 mg Documented by: Review of Systems Neurological: syncope Physical Examination - Vital Signs Vital Signs: Vital Signs Pulse 108 H 12/04/18 15:54 - Constitutional General appearance: comfortable - EENT EENT: Present: mucous membranes moist - Respiratory Respiratory: Present: lungs clear - Cardiovascular Cardiovascular: Present: regular rate Extremities: Present: no peripheral edema bilatateraly - Gastrointestinal Gastrointestinal: Present: normoactive bowel sounds - Integumentary Integumentary: Present: normal - Neurologic Cranial nerve examination: PERRL, EOMI, VFF, V1/V2/V3 grossly intact, face symmetric, tongue midline Speech examination: intact Motor examination - right side: 5/5: biceps, triceps, wrist flexion, wrist extension, radiation control specialist, hip flexors, knee extensors, dorsiflexion, toe extension (EHL), plantarflexion Motor examination - left side: 5/5: biceps, triceps, wrist flexion, wrist extension, radiation control specialist, hip flexors, knee extensors, dorsiflexion, toe extension (EHL), plantarflexion Detailed sensory examination: intact Reflexes: 0: ankle, bicep, knee, tricep - Psychiatric Psychiatric: Present: pressured speech Results - Laboratory Findings CBC and BMP: 12/05/18 05:00 12/05/18 05:00 Abnormal Lab Findings: Abnormal Labs 12/04/18 12/05/18 12/05/18 17:19 05:00 05:00 WBC 3.8 L Plt Count 138 L [place] % (Auto) 9.6 H Chloride 97.5 L BUN 29 H 26 H Creatinine 2.4 H 1.9 H Albumin 3.7 L Triglycerides 264 H HDL Cholesterol 31 L - Diagnostic Findings Additional findings: CT head with chronic changes, nothing acute Assessment and Plan This is a 63 YO M with possible syncope. REcommend: Agree with MRI Brain w/o polly(renal failure) and EEG COntinue care for all of his medical issues as you are doiung Psych eval noted Check orthostatics if not already done
[2018-12-05] MEDS: REQUIP PO SCH (22:09)
[2018-12-05] MEDS: PERCOCET 5/325 PO PRN (23:52)
[2018-12-06] MEDS: PULMICORT IH SCH ×2 (08:44→20:52)
[2018-12-06 08:47] LABS: Hematocrit 40.6 % (35.5-45.6); Hemoglobin 13.5 gm/dl (11.8-15.2); Mean Corpuscular HGB Conc 33 % (32-34); Mean Corpuscular Volume 90 fl (84-94); Platelet Count 148 K/mm3 (140-440); Red Cell Distribution Width 14.8 % (13.2-15.2)
[2018-12-06] MEDS: BABY ASPIRIN PO SCH (09:03)
[2018-12-06] MEDS: PRAVACHOL PO SCH (09:03)
[2018-12-06] MEDS: FLOMAX PO SCH (09:03)
[2018-12-06] MEDS: HEPARIN SUB-Q SCH ×2 (09:03→22:15)
[2018-12-06] MEDS: EFFEXOR XR PO SCH (09:03)
--- NOTE | 2018-12-06 09:04 | Progress Note ---
Assessment and Plan Assessment and plan: 60-year-old male with history of hypertension, BPH, HLD, anxiety presents to [facility] ED via EMS with complaints of weakness. Patient has psychiatric history and is on multiple antipsychotic medication. Patient states that he sleep walks and can see 3-4 student people in the room at the time. CT head did not reveal any acute intracranial abnormalities. Patient was found to have acute renal failure with BUN/CR of 29/2.4, admitted Syncope Hypertension BPH HLD Anxiety Psychosis 3.6 sec pause on Tele Plan: Continue supportive care Neurochecks per protocol Continuous Telemetry monitoring Gentle hydration with IVF; Nephrology following Bilateral carotid duplex, echo, Monitor BP Metoprolol 50 mg twice a day Resume home dose Flomax Resume home meds: Seroquel, Requip, venlafaxine Started ASA 81mg Resume home statin: Pravastatin 20mg daily Psych consulted PT/OT consulted DVT on heparin and SCD's MRI neg for new stroke Hold metoprolol Poss dc home in am History Interval history: Syncope Generalized weakness Hallucinations-sees people had a pause of 3.6 sec on cardiac Telemetry yesterday Hospitalist Physical - Physical exam Narrative exam: Gen: Not in acute distress, lying in bed, obese HEENT: Normocephalic, atraumatic Neck: supple, no JVD Heart: S1 and S2 reg, no murmurs, rubs or gallop Lungs: Clear, no crackles, no wheeze Abd: soft, non tender, non distended, normal BS Ext: No edema, no clubbing, no cyanosis, Neuro: Awake,alert, oriented x 3, moves all ext - Constitutional Vitals: Temp Pulse Resp BP Pulse Ox 97.5 F L 63 18 135/83 99 12/06/18 05:28 12/06/18 08:51 12/06/18 08:51 12/06/18 05:28 12/06/18 08:49 Results - Labs CBC & Chem 7: 12/06/18 07:45 12/06/18 04:57 Labs: Laboratory Last Values WBC 3.2 K/mm3 (4.5-11.0) L 12/06/18 07:45 RBC 4.50 M/mm3 (3.65-5.03) 12/06/18 07:45 Hgb 13.5 gm/dl (11.8-15.2) 12/06/18 07:45 Hct 40.6 % (35.5-45.6) 12/06/18 07:45 MCV 90 fl (84-94) 12/06/18 07:45 MCH 30 pg (28-32) 12/06/18 07:45 MCHC 33 % (32-34) 12/06/18 07:45 RDW 14.8 % (13.2-15.2) 12/06/18 07:45 Plt Count 148 K/mm3 (140-440) 12/06/18 07:45 Lymph % (Auto) 33.9 % (13.4-35.0) 12/05/18 05:00 [place] % (Auto) 9.6 % (0.0-7.3) H 12/05/18 05:00 Eos % (Auto) 3.6 % (0.0-4.3) 12/05/18 05:00 Baso % (Auto) 1.0 % (0.0-1.8) 12/05/18 05:00 Lymph # 1.3 K/mm3 (1.2-5.4) 12/05/18 05:00 Harvey # 0.4 K/mm3 (0.0-0.8) 12/05/18 05:00 Eos # 0.1 K/mm3 (0.0-0.4) 12/05/18 05:00 Baso # 0.0 K/mm3 (0.0-0.1) 12/05/18 05:00 Seg Neutrophils % 51.9 % (40.0-70.0) 12/05/18 05:00 Seg Neutrophils # 1.9 K/mm3 (1.8-7.7) 12/05/18 05:00 PT 13.7 Sec. (12.2-14.9) 12/04/18 17:19 INR 0.99 (0.87-1.13) 12/04/18 17:19 135.00 ng/mlDDU (0-234) 12/04/18 17:19 Sodium 142 mmol/L (137-145) 12/06/18 04:57 Potassium 4.6 mmol/L (3.6-5.0) 12/06/18 04:57 Chloride 105.2 mmol/L (98-107) 12/06/18 04:57 Carbon Dioxide 26 mmol/L (22-30) 12/06/18 04:57 15 mmol/L 12/06/18 04:57 BUN 22 mg/dL (9-20) H 12/06/18 04:57 1.5 mg/dL (0.8-1.5) 12/06/18 04:57 Estimated GFR 47 ml/min 12/06/18 04:57 15 % 12/06/18 04:57 Glucose 93 mg/dL (75-100) 12/06/18 04:57 5.5 % (4-6) 12/05/18 05:00 Calcium 9.0 mg/dL (8.4-10.2) 12/06/18 04:57 Phosphorus 2.80 mg/dL (2.5-4.5) 12/06/18 04:57 Magnesium 1.90 mg/dL (1.7-2.3) 12/04/18 17:19 0.70 mg/dL (0.1-1.2) 12/04/18 17:19 AST 20 units/L (5-40) 12/04/18 17:19 ALT 25 units/L (7-56) 12/04/18 17:19 87 units/L (35-129) 12/04/18 17:19 133 units/L (55-170) 12/04/18 17:19 < 0.010 ng/mL (0.00-0.029) 12/05/18 05:00 6.6 g/dL (6.3-8.2) 12/04/18 17:19 3.7 g/dL (3.9-5) L 12/04/18 17:19 1.3 % 12/04/18 17:19 Triglycerides 264 mg/dL (2-149) H 12/05/18 05:00 Cholesterol 128 mg/dL (50-199) 12/05/18 05:00 79 mg/dL (50-130) 12/05/18 05:00 31 mg/dL (40-59) L 12/05/18 05:00 4.12 % 12/05/18 05:00 TSH 2.640 mlU/mL (0.270-4.200) 12/04/18 17:19 PTH Intact 79.09 pg/mL (15-65) H 12/06/18 04:57 Yellow (Yellow) 12/04/18 18:40 Clear (Clear) 12/04/18 18:40 5.0 (5.0-7.0) 12/04/18 18:40 Ur Specific [place] 1.014 (1.003-1.030) 12/04/18 18:40 <15 mg/dl mg/dL (Negative) 12/04/18 18:40 Neg mg/dL (Negative) 12/04/18 18:40 Neg mg/dL (Negative) 12/04/18 18:40 Neg (Negative) 12/04/18 18:40 Neg (Negative) 12/04/18 18:40 Neg (Negative) 12/04/18 18:40 4.0 mg/dL (<2.0) 12/04/18 18:40 Ur Leukocyte Esterase Neg (Negative) 12/04/18 18:40 1.0 /HPF (0.0-6.0) 12/04/18 18:40 1.0 /HPF (0.0-6.0) 12/04/18 18:40 U Epithel Cells (Auto) < 1.0 /HPF (0-13.0) 12/04/18 18:40 Few /HPF 12/04/18 18:40 Active Medications - Current Medications Current Medications: Generic Name Dose Route Start Last Admin Trade Name Freq PRN Reason Stop Dose Admin Acetaminophen 650 mg 12/04/18 20:10 Tylenol PO Q4H PRN Pain MILD(1-3)/Fever >100.5/SANTANA Albuterol 2.5 mg 12/04/18 20:21 Proventil IH Q4HRT PRN Shortness Of Breath Aspirin 81 mg 12/05/18 10:00 12/05/18 14:22 Baby Aspirin PO 81 mg QDAY MARY GRACE Administration Budesonide 0.5 mg 12/05/18 08:00 12/06/18 08:44 Pulmicort IH 0.5 mg Q12HRT MARY GRACE Administration Heparin Sodium (Porcine) 5,000 unit 12/04/18 22:00 12/05/18 22:09 Heparin SUB-Q 5,000 unit Q12HR MARY GRACE Administration Sodium Chloride 1,000 mls @ 125 mls/hr 12/04/18 21:00 12/05/18 23:53 Nacl 0.9% 1000 Ml IV 125 mls/hr DIRECT MARY GRACE Administration Ondansetron HCl 4 mg 12/04/18 20:10 Zofran IV Q8H PRN Nausea And Vomiting Oxycodone/Acetaminophen 1 tab 12/04/18 20:10 12/05/18 23:52 Percocet 5/325 PO 1 tab Q6H PRN Administration Pain, Moderate (4-6) Pravastatin Sodium 20 mg 12/05/18 10:00 12/05/18 14:23 Pravachol PO 20 mg DAILY MARY GRACE Administration Quetiapine Fumarate 100 mg 12/04/18 22:00 12/05/18 22:09 Seroquel PO 100 mg HS MARY GRACE Administration Quetiapine Fumarate 200 mg 12/05/18 22:00 12/05/18 22:09 Seroquel PO 200 mg QHS MARY GRACE Administration Ropinirole HCl 1 mg 12/04/18 22:00 12/05/18 22:09 Requip PO 1 mg QHS MARY GRACE Administration Sodium Chloride 10 ml 12/04/18 22:00 12/05/18 22:10 Sodium Chloride Flush Syringe 10 Ml IV 10 ml BID MARY GRACE Administration Sodium Chloride 10 ml 12/04/18 20:10 Sodium Chloride Flush Syringe 10 Ml IV PRN PRN LINE FLUSH Tamsulosin HCl 0.4 mg 12/05/18 10:00 12/05/18 14:23 Flomax PO 0.4 mg QDAY MARY GRACE Administration Venlafaxine HCl 150 mg 12/05/18 18:18 Effexor Xr PO QDAY [facility]ARY GRACE
[2018-12-06] MEDS: SODIUM CHLORIDE FLUSH SYRINGE 10 ML IV SCH ×2 (09:15→22:21)
--- NOTE | 2018-12-06 09:46 | Consultation ---
History of Present Illness - Reason for Consult Consult date: 12/06/18 acute renal failure - History of Present Illness the patient is a 60 YO male with history significant for Obesity, Hypertension, BPH, HLD, Anxiety and L nephrectomy who presented to [facility] ED via EMS with complaints of generalized weakness. Patient is a poor historian and is unable to provide specific details. He has been experiencing generalized weakness for past month. He also complains of aches and pains in his bilateral shoulders, elbows, hips, lower back, knees and ankles. Over the weekend, while he was standing in front of his bed the patient either passed out or fell onto his bed. He is vague about the episode. He has chronic WILKINSON. Patient denies any N, V, D, SANTANA, dizziness, cp, Orthopnea, abd pain, dysuria, hematuria, recent travel, or recent sick contact. Labs were significant for creat 2.4. Nephrology was consulted for further evaluation. Past History Past Medical History: hypertension, hyperlipidemia, other (BPH, anxiety, restless leg syndrome) Past Surgical History: Other (renal surgery, hernia repair, knee surgery) Social history: no significant social history Family history: no significant family history Medications and Allergies Allergies Allergy/AdvReac Type Severity Reaction Status Date / Time No Known Allergies Allergy Verified 12/04/18 20:26 Home Medications Medication Instructions Recorded Confirmed Last Taken Type Fluticasone Propionate [Flovent 50 mcg IH PRN 12/04/18 12/04/18 Unknown History Diskus] Lisinopril/Hydrochlorothiazide 1 each PO DAILY 12/04/18 12/04/18 Unknown History [Zestoretic 10-12.5 mg Tablet] Metoprolol [Lopressor TAB] 50 mg PO BID 12/04/18 12/04/18 Unknown History Pravastatin [Pravachol] 20 mg PO DAILY 12/04/18 12/04/18 Unknown History QUEtiapine [SEROquel] 100 mg PO HS 12/04/18 12/04/18 Unknown History Tamsulosin [Flomax] 0.4 mg PO QDAY 12/04/18 12/04/18 Unknown History Venlafaxine ER 150 mg PO DAILY 12/04/18 12/04/18 Unknown History rOPINIRole [Requip] 1 mg PO QHS 12/04/18 12/04/18 Unknown History Active Meds: Active Medications Acetaminophen (Tylenol) 650 mg PO Q4H PRN PRN Reason: Pain MILD(1-3)/Fever >100.5/SANTANA Albuterol (Proventil) 2.5 mg IH Q4HRT PRN PRN Reason: Shortness Of Breath Aspirin (Baby Aspirin) 81 mg PO QDAY [facility] Last Admin: 12/06/18 09:03 Dose: 81 mg Documented by: Budesonide (Pulmicort) 0.5 mg IH Q12HRT [facility] Last Admin: 12/06/18 08:44 Dose: 0.5 mg Documented by: Heparin Sodium (Porcine) (Heparin) 5,000 unit SUB-Q Q12HR [facility] Last Admin: 12/06/18 09:03 Dose: 5,000 unit Documented by: Sodium Chloride (Nacl 0.9% 1000 Ml) 1,000 mls @ 125 mls/hr IV DIRECT [facility] Last Admin: 12/05/18 23:53 Dose: 125 mls/hr Documented by: Ondansetron HCl (Zofran) 4 mg IV Q8H PRN PRN Reason: Nausea And Vomiting Oxycodone/Acetaminophen (Percocet 5/325) 1 tab PO Q6H PRN PRN Reason: Pain, Moderate (4-6) Last Admin: 12/05/18 23:52 Dose: 1 tab Documented by: Pravastatin Sodium (Pravachol) 20 mg PO DAILY [facility] Last Admin: 12/06/18 09:03 Dose: 20 mg Documented by: Quetiapine Fumarate (Seroquel) 100 mg PO [facility] Last Admin: 12/05/18 22:09 Dose: 100 mg Documented by: Quetiapine Fumarate (Seroquel) 200 mg PO QHS [facility] Last Admin: 12/05/18 22:09 Dose: 200 mg Documented by: Ropinirole HCl (Requip) 1 mg PO QHS [facility] Last Admin: 12/05/18 22:09 Dose: 1 mg Documented by: Sodium Chloride (Sodium Chloride Flush Syringe 10 Ml) 10 ml IV BID [facility] Last Admin: 12/06/18 09:15 Dose: 10 ml Documented by: Sodium Chloride (Sodium Chloride Flush Syringe 10 Ml) 10 ml IV PRN PRN PRN Reason: LINE FLUSH Tamsulosin HCl (Flomax) 0.4 mg PO QDAY [facility] Last Admin: 12/06/18 09:03 Dose: 0.4 mg Documented by: Venlafaxine HCl (Effexor Xr) 150 mg PO QDAY [facility] Last Admin: 12/06/18 09:03 Dose: 150 mg Documented by: Review of Systems Constitutional: weakness, no weight loss, no weight gain, no fever, no chills, no anorexia, no fatigue, no poor appetite Cardiovascular: shortness of breath, dyspnea on exertion, high blood pressure, decreased exercise tolerance, no chest pain, no orthopnea, no edema, no syncope, no lightheadedness, no paroxysmal nocturnal dyspnea, no leg edema Respiratory: shortness of breath, dyspnea on exertion, no cough, no hemoptysis, no home oxygen Gastrointestinal: no abdominal pain, no nausea, no vomiting, no diarrhea Genitourinary Male: no dysuria, no hematuria Rectal: no bleeding Musculoskeletal: muscle weakness Integumentary: no rash, no wounds, no jaundice Neurological: weakness, no head injury, no paralysis, no convulsions, no change in mentation, no confusion, no memory loss Psychiatric: anxiety Exam - Vital Signs Vital signs: Vital Signs Pulse 108 H 12/04/18 15:54 - General Appearance General appearance: well-developed, well-nourished, appears stated age, obese, other (not in distress) EENT: ATNC, PERRL, mucous membranes moist, hearing intact, vision intact Neck: Present: neck supple, trachea midline Respiratory: Clear to Ascultation Heart: regular, S1S2, no murmurs Gastrointestinal: Present: normoactive bowel sounds. Absent: tenderness, distended Integumentary: no rash, warm and dry Neurologic: no focal deficit, no asterixis, alert and oriented x3 Musculoskeletal: Present: other (no edema) Psychiatric: cooperative Results - Lab Results 12/06/18 07:45 12/06/18 04:57 Most recent lab results Calcium 9.0 mg/dL (8.4-10.2) 12/06/18 04:57 Phosphorus 2.80 mg/dL (2.5-4.5) 12/06/18 04:57 Magnesium 1.90 mg/dL (1.7-2.3) 12/04/18 17:19 Assessment and Plan 1. Acute kidney injury: Likely Vasomotor [place] in the setting of volume depletion. Continue IV fluids. UA is bland. Unilateral kidney. Renal US. Renal function is improving. Monitor renal function. Avoid nephrotoxic agents. Meds dosage based on GFR. 2. FEN: Continue IV fluids. Monitor lytes. 3. Syncope. 4. HTN.
--- NOTE | 2018-12-06 10:58 | Consultation ---
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 His PCP is Dr. Copeland. He presented to ED with c/o weakness, intermittent chest pain and 2 syncopal episodes over the past 3 weeks. He states that his chest pain occurs mostly at night and is located over his left ribs. He also reports 2 syncopal episodes, the first occurred while he was getting out of bed and the second occurred while he was walking. He did feel dizziness prior to both syncopal episodes. He denies any chest pain, SOB or palpitations associated with his syncope. the patient is tangential in his history, and difficult to redirect. The patient is a poor historian. Pt has h/o psychiatric issues and admits to visual hallucinations. Pt was noted in sinus bradycardia on telemetry with several sinus pauses noted, longest pause thus far was 3.6 sec and thus cardiology has been consulted. Pt was reportedly sleeping during the longest pause yesterday. Pt does believe that he has sleep apnea. Pt underwent lexiscan MPI stress test yesterday which showed fixed defects, no significant ischemia, EF 40%. Echo showed EF 50%, trace MR and TR, mild LVH, impaired relaxation. Past History Past Medical History: hypertension, hyperlipidemia, other (BPH, anxiety, restless leg syndrome) Past Surgical History: Other (renal surgery, hernia repair, knee surgery) Social history: no significant social history Family history: no significant family history Medications and Allergies Allergies Allergy/AdvReac Type Severity Reaction Status Date / Time No Known Allergies Allergy Verified 12/04/18 20:26 Home Medications Medication Instructions Recorded Confirmed Last Taken Type Fluticasone Propionate [Flovent 50 mcg IH PRN 12/04/18 12/04/18 Unknown History Diskus] Lisinopril/Hydrochlorothiazide 1 each PO DAILY 12/04/18 12/04/18 Unknown History [Zestoretic 10-12.5 mg Tablet] Metoprolol [Lopressor TAB] 50 mg PO BID 12/04/18 12/04/18 Unknown History Pravastatin [Pravachol] 20 mg PO DAILY 12/04/18 12/04/18 Unknown History QUEtiapine [SEROquel] 100 mg PO HS 12/04/18 12/04/18 Unknown History Tamsulosin [Flomax] 0.4 mg PO QDAY 12/04/18 12/04/18 Unknown History Venlafaxine ER 150 mg PO DAILY 12/04/18 12/04/18 Unknown History rOPINIRole [Requip] 1 mg PO QHS 12/04/18 12/04/18 Unknown History Active Meds: Active Medications Acetaminophen (Tylenol) 650 mg PO Q4H PRN PRN Reason: Pain MILD(1-3)/Fever >100.5/SANTANA Albuterol (Proventil) 2.5 mg IH Q4HRT PRN PRN Reason: Shortness Of Breath Aspirin (Baby Aspirin) 81 mg PO QDAY [facility] Last Admin: 12/06/18 09:03 Dose: 81 mg Documented by: Budesonide (Pulmicort) 0.5 mg IH Q12HRT [facility] Last Admin: 12/06/18 08:44 Dose: 0.5 mg Documented by: Heparin Sodium (Porcine) (Heparin) 5,000 unit SUB-Q Q12HR [facility] Last Admin: 12/06/18 09:03 Dose: 5,000 unit Documented by: Sodium Chloride (Nacl 0.9% 1000 Ml) 1,000 mls @ 125 mls/hr IV DIRECT [facility] Last Admin: 12/05/18 23:53 Dose: 125 mls/hr Documented by: Ondansetron HCl (Zofran) 4 mg IV Q8H PRN PRN Reason: Nausea And Vomiting Oxycodone/Acetaminophen (Percocet 5/325) 1 tab PO Q6H PRN PRN Reason: Pain, Moderate (4-6) Last Admin: 12/05/18 23:52 Dose: 1 tab Documented by: Pravastatin Sodium (Pravachol) 20 mg PO DAILY [facility] Last Admin: 12/06/18 09:03 Dose: 20 mg Documented by: Quetiapine Fumarate (Seroquel) 100 mg PO HS [facility] Last Admin: 12/05/18 22:09 Dose: 100 mg Documented by: Quetiapine Fumarate (Seroquel) 200 mg PO QHS [facility] Last Admin: 12/05/18 22:09 Dose: 200 mg Documented by: Ropinirole HCl (Requip) 1 mg PO QHS [facility] Last Admin: 12/05/18 22:09 Dose: 1 mg Documented by: Sodium Chloride (Sodium Chloride Flush Syringe 10 Ml) 10 ml IV BID [facility] Last Admin: 12/06/18 09:15 Dose: 10 ml Documented by: Sodium Chloride (Sodium Chloride Flush Syringe 10 Ml) 10 ml IV PRN PRN PRN Reason: LINE FLUSH Tamsulosin HCl (Flomax) 0.4 mg PO QDAY [facility] Last Admin: 12/06/18 09:03 Dose: 0.4 mg Documented by: Venlafaxine HCl (Effexor Xr) 150 mg PO QDAY [facility] Last Admin: 12/06/18 09:03 Dose: 150 mg Documented by: Review of Systems Constitutional: no weight loss, no weight gain, no fever, no chills, no sweats Ears, nose, mouth and throat: no ear pain, no nose pain, no sinus pressure, no sinus pain Cardiovascular: chest pain, syncope, lightheadedness, no orthopnea, no palp itations, no rapid/irregular heart beat, no edema, no shortness of breath, no dyspnea on exertion Respiratory: no cough, no shortness of breath, no dyspnea on exertion, no con gestion, no wheezing, no pain on inspiration Gastrointestinal: no abdominal pain, no nausea, no vomiting, no diarrhea, no constipation, no change in bowel habits Genitourinary Male: no dysuria, no hematuria, no flank pain, no discharge, no urinary frequency, no urinary hesitancy Musculoskeletal: no neck stiffness, no neck pain, no shooting arm pain, no arm numbness/tingling, no low back pain, no shooting leg pain Integumentary: no rash, no pruritis, no redness, no sores, no wounds Neurological: no head injury, no paralysis, no weakness, no parathesias, no numbness, no tingling, no seizures, no syncope Psychiatric: hallucinations Endocrine: no cold intolerance, no heat intolerance Hematologic/Lymphatic: no easy bruising, no easy bleeding Allergic/Immunologic: no urticaria, no wheezing Physical Examination Vital Signs Pulse 108 H 12/04/18 15:54 General appearance: no acute distress HEENT: Positive: PERRL, Normocephaly, Mucus Membranes Moist Neck: Positive: neck supple, trachea midline Cardiac: Positive: Reg Rate and Rhythm, S1/S2 Lungs: Positive: clear to auscultation Neuro: Positive: Grossly Intact Abdomen: Positive: Soft. Negative: Tender Skin: Negative: Rash, Wound Musculoskeletal: No Pain Extremities: Absent: edema Results 12/06/18 07:45 12/06/18 04:57 CBC 12/06/18 Range/Units 07:45 WBC 3.2 L (4.5-11.0) K/mm3 RBC 4.50 (3.65-5.03) M/mm3 Hgb 13.5 (11.8-15.2) gm/dl Hct 40.6 (35.5-45.6) % Plt Count 148 (140-440) K/mm3 Comprehensive Metabolic Panel 12/06/18 Range/Units 04:57 Sodium 142 (137-145) mmol/L Potassium 4.6 (3.6-5.0) mmol/L Chloride 105.2 (98-107) mmol/L Carbon Dioxide 26 (22-30) mmol/L BUN 22 H (9-20) mg/dL Creatinine 1.5 (0.8-1.5) mg/dL Glucose 93 (75-100) mg/dL Calcium 9.0 (8.4-10.2) mg/dL - Imaging and Cardiology Echo: report reviewed EKG: report reviewed, image reviewed EKG interpretations - Telemetry EKG Rhythm: Sinus Rhythm - EKG Sinus rhythms and dysrhythmias: sinus rhythm Assessment and Plan Pt underwent lexiscan MPI stress test yesterday which showed fixed defects, no significant ischemia, EF 40%. Echo showed EF 50%, trace MR and TR, mild LVH, impaired relaxation. He is noted to be in sinus bradycardia on telemetry with several sinus pauses noted, longest pause thus far was 3.6 sec. Pt was reportedly sleeping during the longest pause yesterday. Pt with suspected KATI. Pt was taking lisinopril at home for HTN, no AV diego blocking agents reported. Cont to hold AV diego blocking agents and cont to monitor on telemetry. Pt would benefit from OP sleep study. Suspect untreated KATI is contributing to sinus pauses. The patient has been seen in conjunction with Dr. Covarrubias who agrees with the assessment and plan of care. - Patient Problems (1) Syncope Current Visit: Yes Status: Acute (2) Chest pain Current Visit: Yes Status: Acute (3) Sinus bradycardia Current Visit: Yes Status: Acute (4) Sinus pause Current Visit: Yes Status: Acute (5) KATI (obstructive sleep apnea) Current Visit: Yes Status: Suspected (6) HTN (hypertension) Current Visit: Yes Status: Chronic (7) MILTON (acute kidney injury) Current Visit: Yes Status: Acute (8) Psychiatric illness Current Visit: Yes Status: Chronic
--- NOTE | 2018-12-06 11:11 | Progress Note ---
Subjective - Reason for Consult Consult date: 12/06/18 Reason for consult: Psychiatry Follow-up - Chief Complaint Chief complaint: "I had a good night" 63 year old male who presented to [facility] for generalized weakness. Today the patient was calm and cooperative during the assessment. He stated that he had a good night. He denies that leslie's seeing " people" when asked. He did acknowledge that he has struggled with the of his . He stated that his PCP manage his psy medications, but would like to see a psychiatrist once discharged. He denies Si/HI's and AVH's. He denies any side effects of his medications. Mental Status Exam - Vital signs Last Vital Signs Temp 97.7 F 12/06/18 09:34 Pulse 57 L 12/06/18 09:34 Resp 18 12/06/18 09:34 BP 131/73 12/06/18 09:34 Pulse Ox 99 12/06/18 09:34 - Exam Narrative exam: MSE: Appearance: calm, cooperative Behavior: regular eye contact Speech: regular rate and tone Mood: "okay" Affect: congruent to mood Thought Process: linear Thought Content: denies SI/HI's and AVH's Motor Activity: sitting up in bed Cognition: A/O x3 Insight: appropriate Judgment: appropriate Assessment and Plan Impression: MDD, recurrent, severe with psychosis. Today the patient was calm and cooperative during the assessment. The patient's psychosis has resolved. Recommendation/Plan: Continue home medications Effexor XR 150 mg PO daily for depression/anxiety and Seroquel 200 mg PO HS for psychosis/mood. Discussed possible suicidality/medication induced yue with the patient reference Effexor, he verbalized understanding. Also, discussed possible metabolic side effects of Seroquel, he verbalized understanding. Psy signs off. Dispo: The patient can follow up with [facility] for outpatient psy services. Will staff with Dr. Damari Torres.
[2018-12-06] MEDS: PERCOCET 5/325 PO PRN (16:26)
--- NOTE | 2018-12-06 16:32 | Magnetic Resonance Report ---
PROCEDURE: MR BRAIN WO CON TECHNIQUE: T1 and T2-weighted sagittal, axial, coronal and diffusion-weighted images of the brain we re obtained. HISTORY: syncope, difficulty speaking, unsteady gait COMPARISONS: Head CT dated December 04, 2018 FINDINGS: Visualization of fine detail on some of the sequences is limited by motion artifact. The study remain s of diagnostic quality. There are chronic cortical infarcts in the left frontal lobe and in the parietal occipital lobes bila terally and a chronic lacunar infarct in the right cerebellum. There is small focus of gradient echo abnormality in the region of the chronic lacunar infarct consis tent with sequela of previous microhemorrhage. T2 signal abnormalities in the subcortical and deep white matter of the cerebral hemispheres bilatera lly and within the gopi are consistent with chronic postischemic demyelination/small vessel disease. There is no evidence of intracranial mass. Expected flow void is demonstrated within the major intracranial arteries at the skull base. The extracranial structures and craniocervical junction are unremarkable in appearance. IMPRESSION: 1. Chronic infarcts left frontal lobe, parietal and occipital lobes bilaterally and right cerebellum and white matter changes most consistent with chronic postischemic demyelination/small vessel disease . No evidence of acute infarct. 2. Sequela of previous microhemorrhage in the right cerebellum at the site of the chronic lacunar inf arct This document is electronically signed by Falguni Campo MD., December 06 2018 04:30:37 PM ET
[2018-12-06] MEDS: REQUIP PO SCH (22:16)
[2018-12-06] MEDS: NACL 0.9% 1000 ML 1,000 ML IV SCH (22:21)
[2018-12-07] MEDS: PERCOCET 5/325 PO PRN ×2 (05:23→10:23)
[2018-12-07 07:17] LABS: Calcium 8.8 mg/dL (8.4-10.2)
--- NOTE | 2018-12-07 09:08 | Ultrasound Report ---
ULTRASOUND RENAL RIGHT History: Acute renal failure, left nephrectomy in 2011. Technique: Transabdominal grayscale ultrasound with color Doppler interrogation. Findings: The right kidney measures 13.2 x 4.8 x 6.9 cm. Right renal cortex measures 1.5 cm. No evidence for cystic disease, mass, calculus, hydronephrosis or perinephric fluid. Right renal echotexture is within normal limits. Images of the bladder are unremarkable. Impression: Right kidney within normal limits.
--- NOTE | 2018-12-07 10:14 | Progress Note ---
Assessment and Plan Pt underwent lexiscan MPI stress test which showed fixed defects, no significant ischemia, EF 40%. Echo showed EF 50%, trace MR and TR, mild LVH, impaired relaxation. He is noted to be in sinus bradycardia on telemetry with several sinus pauses noted, longest pause thus far was 3.6 sec. Pt was reportedly sleeping during this pause. Pt with suspected KATI. Pt would benefit from OP sleep study. Suspect untreated KATI is contributing to sinus pauses. No pauses noted on telemetry overnight. Cont to hold AV diego blocking agents. Currently stable cardiac status. Pt may discharge home from cardiology standpoint. Recommend follow up in our office with Dr. Covarrubias within 1-2 weeks of hospital discharge ([phone]). The patient has been seen in conjunction with Dr. Covarrubias who agrees with the assessment and plan of care. - Patient Problems (1) Syncope Current Visit: Yes Status: Acute (2) Chest pain Current Visit: Yes Status: Resolved (3) Sinus bradycardia Current Visit: Yes Status: Acute (4) Sinus pause Current Visit: Yes Status: Acute (5) KATI (obstructive sleep apnea) Current Visit: Yes Status: Suspected (6) HTN (hypertension) Current Visit: Yes Status: Chronic (7) MILTON (acute kidney injury) Current Visit: Yes Status: Acute (8) Psychiatric illness Current Visit: Yes Status: Chronic Subjective Date of service: 12/07/18 Principal diagnosis: syncope; sinus pauses Interval history: pt ambulating around room, no current cardiac complaints. tele reviewed - pt in SR overnight with no pauses or bradyarrhythmias noted. Objective Last Vital Signs Temp 98.2 F 12/07/18 04:02 Pulse 73 12/07/18 07:51 Resp 16 12/07/18 07:51 BP 144/74 12/07/18 07:51 Pulse Ox 97 12/07/18 07:51 - Physical Examination General: No Apparent Distress HEENT: Positive: PERRL, Normocephaly, Mucus Membranes Moist Neck: Positive: neck supple, trachea midline Cardiac: Positive: Reg Rate and Rhythm, S1/S2 Lungs: Positive: Decreased Breath Sounds Neuro: Positive: Grossly Intact Abdomen: Positive: Soft. Negative: Tender Skin: Negative: Rash, Wound Musculoskeletal: No Pain Extremities: Absent: edema - Labs and Meds Comprehensive Metabolic Panel 06/07/19 Range/Units 05:00 Sodium 147 H (137-145) mmol/L Potassium 4.5 (3.6-5.0) mmol/L Chloride 106.6 (98-107) mmol/L Carbon Dioxide 25 (22-30) mmol/L BUN 16 (9-20) mg/dL Creatinine 1.4 (0.8-1.5) mg/dL Glucose 75 (75-100) mg/dL Calcium 8.8 (8.4-10.2) mg/dL - Imaging and Cardiology EKG: report reviewed, image reviewed Echo: report reviewed - EKG Sinus rhythms and dysrhythmias: sinus rhythm
[2018-12-07] MEDS: PRAVACHOL PO SCH (10:21)
[2018-12-07] MEDS: EFFEXOR XR PO SCH (10:22)
[2018-12-07] MEDS: BABY ASPIRIN PO SCH (10:22)
[2018-12-07] MEDS: HEPARIN SUB-Q SCH (10:22)
[2018-12-07] MEDS: FLOMAX PO SCH (10:22)
[2018-12-07] MEDS: SODIUM CHLORIDE FLUSH SYRINGE 10 ML IV SCH (10:26)
[2018-12-07] MEDS: PULMICORT IH SCH (10:29)
[2018-12-07] MEDS: NACL 0.9% 1000 ML 1,000 ML IV SCH (11:23)
--- NOTE | 2018-12-07 12:12 | Discharge Summary ---
Providers - Providers Date of Admission: 12/05/18 15:25 Date of discharge: 12/07/18 Attending physician: ANDERS TRENT 12/04/18 Consult to Physician [CONS] Routine Comment: Consulting Provider: YURI UPTON Physician Instructions: Reason For Exam: syncope 12/04/18 18:44 Consult to Mental Health [CONS] Urgent Reason For Exam: sees people Place consult to:: academic registrar business objects consultant Notified:: awaiting call back 12/04/18 20:12 Occupational Therapy Evaluate and Treat [CONS] Routine Comment: Reason For Exam: Neuro deficits Physical Therapy Evaluation and Treat [CONS] Routine Comment: Reason For Exam: Neuro deficits 12/05/18 16:50 Consult to Physician [CONS] Routine Comment: Consulting Provider: JIMENA LAGUNAS Physician Instructions: Reason For Exam: 3.6 sec pause 12/05/18 17:00 Consult to Physician [CONS] Routine Comment: Consulting Provider: ANGELA SHEFFIELD Physician Instructions: Reason For Exam: MILTON versus acute n chronic,, single kidney Primary care physician: MILES COLLINS Hospitalization Condition: Good Hospital course: Patient is 60 yo with history of hypertension, BPH, hyperlipidemia, anxiety presents to [facility] ED via EMS with complaints of weakness. Patient has psychiatric history and is on multiple antipsychotic medication. Patient states that he sleep walks and can see 3-4 student people in the room at the time. CT head did not reveal any acute intracranial abnormalities. Patient was found to have acute renal failure with BUN/CR of 29/2.4. He was started on IV fluids and admitted. Nephrology was consulted for management of acute kidney injury. Psychiatric was consulted for evaluation of hallucinosis and he was diagnosed with depression and psychosis. On IV fluids, Creatinine improved and he was about to be discharged home when he had an episode of bradycardia with a pause of 3.6 seconds. Cardiology was consulted. He was evaluated and considered to be stable cardiac-mayorga. Speech/Language Therapist stated bradycardia probably from undiagnosed sleep apnea. Patient was then discharged home to follow-up as an outpatient. Total time spent on discharge, 33 mins Disposition: DC-01 TO HOME OR SELFCARE - Discharge Diagnoses (1) Vasomotor nephropathy Status: Acute (2) MDD (major depressive disorder) Status: Acute (3) Psychosis Status: Acute (4) MILTON (acute kidney injury) Status: Acute (5) Syncope Status: Acute (6) HTN (hypertension) Status: Chronic (7) KATI (obstructive sleep apnea) Status: Suspected (8) Hypernatremia Status: Acute (9) Bradycardia Status: Acute Core Measure Documentation - Palliative Care Palliative Care/ Comfort Measures: Not Applicable - Core Measures Any of the following diagnoses?: none Exam - Constitutional Vitals: Temp Pulse Resp BP Pulse Ox 98.2 F 85 18 144/74 93 12/07/18 04:02 12/07/18 10:37 12/07/18 10:37 12/07/18 07:51 12/07/18 10:29 Plan Activity: advance as tolerated Diet: low fat, low cholesterol, low salt Additional Instructions: 1.Follow up with PCP in 1 week. 2.Follow up with Dr. Sheffield in 1 week. 3.Follow up with Dr. Lagunas in 1 week. 4.Follow up with John Garnica in 1 week to evaluate for sleep apnea. Follow up with: MILES COLLINS MD [Primary Care Provider] - 7 Days Prescriptions: Aspirin EC 81 mg PO QDAY #30 tablet. amLODIPine [Norvasc] 5 mg PO DAILY #30 tab
[2018-12-07] MEDS ORDERED: LASIX IV STA (12:45)
--- NOTE | 2018-12-07 13:36 | Progress Note ---
Hospitalist Physical - Constitutional Vitals: Temp Pulse Resp BP Pulse Ox 98.2 F 85 18 144/74 93 12/07/18 04:02 12/07/18 10:37 12/07/18 10:37 12/07/18 07:51 12/07/18 10:29 General appearance: Present: no acute distress Results - Labs CBC & Chem 7: 12/06/18 07:45 12/07/18 05:00 Labs: Laboratory Last Values WBC 3.2 K/mm3 (4.5-11.0) L 12/06/18 07:45 RBC 4.50 M/mm3 (3.65-5.03) 12/06/18 07:45 Hgb 13.5 gm/dl (11.8-15.2) 12/06/18 07:45 Hct 40.6 % (35.5-45.6) 12/06/18 07:45 MCV 90 fl (84-94) 12/06/18 07:45 MCH 30 pg (28-32) 12/06/18 07:45 MCHC 33 % (32-34) 12/06/18 07:45 RDW 14.8 % (13.2-15.2) 12/06/18 07:45 Plt Count 148 K/mm3 (140-440) 12/06/18 07:45 Lymph % (Auto) 33.9 % (13.4-35.0) 12/05/18 05:00 Clarke % (Auto) 9.6 % (0.0-7.3) H 12/05/18 05:00 Eos % (Auto) 3.6 % (0.0-4.3) 12/05/18 05:00 Baso % (Auto) 1.0 % (0.0-1.8) 12/05/18 05:00 Lymph # 1.3 K/mm3 (1.2-5.4) 12/05/18 05:00 Clarke # 0.4 K/mm3 (0.0-0.8) 12/05/18 05:00 Eos # 0.1 K/mm3 (0.0-0.4) 12/05/18 05:00 Baso # 0.0 K/mm3 (0.0-0.1) 12/05/18 05:00 Seg Neutrophils % 51.9 % (40.0-70.0) 12/05/18 05:00 Seg Neutrophils # 1.9 K/mm3 (1.8-7.7) 12/05/18 05:00 PT 13.7 Sec. (12.2-14.9) 12/04/18 17:19 INR 0.99 (0.87-1.13) 12/04/18 17:19 135.00 ng/mlDDU (0-234) 12/04/18 17:19 Sodium 147 mmol/L (137-145) H 12/07/18 05:00 Potassium 4.5 mmol/L (3.6-5.0) 12/07/18 05:00 Chloride 106.6 mmol/L (98-107) 12/07/18 05:00 Carbon Dioxide 25 mmol/L (22-30) 12/07/18 05:00 20 mmol/L 12/07/18 05:00 BUN 16 mg/dL (9-20) 12/07/18 05:00 1.4 mg/dL (0.8-1.5) 12/07/18 05:00 Estimated GFR 51 ml/min 12/07/18 05:00 11 % 12/07/18 05:00 Glucose 75 mg/dL (75-100) 12/07/18 05:00 5.5 % (4-6) 12/05/18 05:00 Calcium 8.8 mg/dL (8.4-10.2) 12/07/18 05:00 Phosphorus 2.80 mg/dL (2.5-4.5) 12/06/18 04:57 Magnesium 1.90 mg/dL (1.7-2.3) 12/04/18 17:19 0.70 mg/dL (0.1-1.2) 12/04/18 17:19 AST 20 units/L (5-40) 12/04/18 17:19 ALT 25 units/L (7-56) 12/04/18 17:19 87 units/L (35-129) 12/04/18 17:19 133 units/L (55-170) 12/04/18 17:19 < 0.010 ng/mL (0.00-0.029) 12/07/18 12:23 6.6 g/dL (6.3-8.2) 12/04/18 17:19 3.7 g/dL (3.9-5) L 12/04/18 17:19 1.3 % 12/04/18 17:19 Triglycerides 264 mg/dL (2-149) H 12/05/18 05:00 Cholesterol 128 mg/dL (50-199) 12/05/18 05:00 79 mg/dL (50-130) 12/05/18 05:00 31 mg/dL (40-59) L 12/05/18 05:00 4.12 % 12/05/18 05:00 TSH 2.640 mlU/mL (0.270-4.200) 12/04/18 17:19 PTH Intact 79.09 pg/mL (15-65) H 12/06/18 04:57 Yellow (Yellow) 12/04/18 18:40 Clear (Clear) 12/04/18 18:40 5.0 (5.0-7.0) 12/04/18 18:40 Ur Specific Randall 1.014 (1.003-1.030) 12/04/18 18:40 <15 mg/dl mg/dL (Negative) 12/04/18 18:40 Neg mg/dL (Negative) 12/04/18 18:40 Neg mg/dL (Negative) 12/04/18 18:40 Neg (Negative) 12/04/18 18:40 Neg (Negative) 12/04/18 18:40 Neg (Negative) 12/04/18 18:40 4.0 mg/dL (<2.0) 12/04/18 18:40 Ur Leukocyte Esterase Neg (Negative) 12/04/18 18:40 1.0 /HPF (0.0-6.0) 12/04/18 18:40 1.0 /HPF (0.0-6.0) 12/04/18 18:40 U Epithel Cells (Auto) < 1.0 /HPF (0-13.0) 12/04/18 18:40 Few /HPF 12/04/18 18:40 Active Medications - Current Medications Current Medications: Generic Name Dose Route Start Last Admin Trade Name Freq PRN Reason Stop Dose Admin Acetaminophen 650 mg 12/04/18 20:10 Tylenol PO Q4H PRN Pain MILD(1-3)/Fever >100.5/SANTANA Albuterol 2.5 mg 12/04/18 20:21 Proventil IH Q4HRT PRN Shortness Of Breath Aspirin 81 mg 12/05/18 10:00 12/07/18 10:22 Baby Aspirin PO 81 mg QDAY MARY GRACE Administration Budesonide 0.5 mg 12/05/18 08:00 12/07/18 10:29 Pulmicort IH 0.5 mg Q12HRT MARY GRACE Administration Heparin Sodium (Porcine) 5,000 unit 12/04/18 22:00 12/07/18 10:22 Heparin SUB-Q 5,000 unit Q12HR MARY GRACE Administration Ondansetron HCl 4 mg 12/04/18 20:10 Zofran IV Q8H PRN Nausea And Vomiting Oxycodone/Acetaminophen 1 tab 12/04/18 20:10 12/07/18 10:23 Percocet 5/325 PO 1 tab Q6H PRN Administration Pain, Moderate (4-6) Pravastatin Sodium 20 mg 12/05/18 10:00 12/07/18 10:21 Pravachol PO 20 mg DAILY MARY GRACE Administration Quetiapine Fumarate 200 mg 12/05/18 22:00 12/06/18 22:16 Seroquel PO 200 mg QHS MARY GRACE Administration Ropinirole HCl 1 mg 12/04/18 22:00 12/06/18 22:16 Requip PO 1 mg QHS MARY GRACE Administration Sodium Chloride 10 ml 12/04/18 22:00 12/07/18 10:26 Sodium Chloride Flush Syringe 10 Ml IV 10 ml BID MARY GRACE Administration Sodium Chloride 10 ml 12/04/18 20:10 Sodium Chloride Flush Syringe 10 Ml IV PRN PRN LINE FLUSH Tamsulosin HCl 0.4 mg 12/05/18 10:00 12/07/18 10:22 Flomax PO 0.4 mg QDAY MARY GRACE Administration Venlafaxine HCl 150 mg 12/05/18 18:18 12/07/18 10:22 Effexor Xr PO 150 mg QDAY MARY GRACE Administration
--- NOTE | 2018-12-07 13:37 | XRay Report ---
AP CHEST :12/07/18 CLINICAL: Shortness of breath. COMPARISON:12/05/18 FINDINGS: Normal heart and pulmonary vasculature. Mild aortic tortuosity. The lungs are normally expanded and clear. The bones and soft tissues are normal.No tubes or lines. IMPRESSION: No acute cardiopulmonary process and no change since the last exam.
--- NOTE | 2018-12-07 14:04 | Progress Note ---
Assessment and Plan 1. Acute kidney injury: Likely Vasomotor [place] in the setting of volume depletion. Continue IV fluids. UA is bland. Unilateral kidney. Renal US. Renal function is better. Monitor renal function. Avoid nephrotoxic agents. Meds dosage based on GFR. 2. FEN: Monitor lytes. 3. Syncope. 4. HTN. F/u with me in 1-2 weeks. Subjective Date of service: 12/07/18 Principal diagnosis: syncope; sinus pauses Interval history: Patient was seen and examined at the bedside. Objective - Vital Signs Vital signs: Vital Signs - 12hr 12/07/18 12/07/18 12/07/18 04:02 07:51 10:00 Temperature 98.2 F Pulse Rate 78 73 89 Pulse Rate [ Bilateral] Respiratory 18 16 Rate Respiratory Rate [Bilateral ] Blood Pressure 125/73 144/74 O2 Sat by Pulse 98 97 Oximetry 12/07/18 12/07/18 12/07/18 10:29 10:30 10:37 Temperature Pulse Rate Pulse Rate [ 86 85 Bilateral] Respiratory Rate Respiratory 20 18 Rate [Bilateral ] Blood Pressure O2 Sat by Pulse 93 Oximetry - General Appearance General appearance: well-developed, well-nourished, appears stated age, obese, other (no edema) EENT: ATNC, PERRL, mucous membranes moist, hearing intact, vision intact Neck: supple Respiratory: Present: Clear to Ascultation Cardiology: regular, S1S2, no murmurs Gastrointestinal: normoactive bowel sounds, no tenderness, no distended, obese Integumentary: no rash, warm and dry Neurologic: no focal deficit, no asterixis, alert and oriented x3 Musculoskeletal: other (no edema) - Lab 12/06/18 07:45 12/07/18 05:00 Most recent lab results Calcium 8.8 mg/dL (8.4-10.2) 12/07/18 05:00 Phosphorus 2.80 mg/dL (2.5-4.5) 12/06/18 04:57 Magnesium 1.90 mg/dL (1.7-2.3) 12/04/18 17:19 Medications & Allergies - Medications Allergies/Adverse Reactions: Allergies No Known Allergies Allergy (Verified 12/04/18 20:26) Home Medications: Home Medications Medication Instructions Recorded Confirmed Last Taken Type Fluticasone Propionate [Flovent 50 mcg IH PRN 12/04/18 12/04/18 Unknown History Diskus] Pravastatin [Pravachol] 20 mg PO DAILY 12/04/18 12/04/18 Unknown History QUEtiapine [SEROquel] 100 mg PO HS 12/04/18 12/04/18 Unknown History Tamsulosin [Flomax] 0.4 mg PO QDAY 12/04/18 12/04/18 Unknown History Venlafaxine ER 150 mg PO DAILY 12/04/18 12/04/18 Unknown History rOPINIRole [Requip] 1 mg PO QHS 12/04/18 12/04/18 Unknown History Aspirin EC 81 mg PO QDAY #30 tablet. 12/07/18 Unknown Rx amLODIPine [Norvasc] 5 mg PO DAILY #30 tab 12/07/18 Unknown Rx Active Medications: Generic Name Dose Route Start Last Admin Trade Name Freq PRN Reason Stop Dose Admin Acetaminophen 650 mg 12/04/18 20:10 Tylenol PO Q4H PRN Pain MILD(1-3)/Fever >100.5/SANTANA Albuterol 2.5 mg 12/04/18 20:21 Proventil IH Q4HRT PRN Shortness Of Breath Aspirin 81 mg 12/05/18 10:00 12/07/18 10:22 Baby Aspirin PO 81 mg QDAY MARY GRACE Administration Budesonide 0.5 mg 12/05/18 08:00 12/07/18 10:29 Pulmicort IH 0.5 mg Q12HRT MARY GRACE Administration Heparin Sodium (Porcine) 5,000 unit 12/04/18 22:00 12/07/18 10:22 Heparin SUB-Q 5,000 unit Q12HR MARY GRACE Administration Ondansetron HCl 4 mg 12/04/18 20:10 Zofran IV Q8H PRN Nausea And Vomiting Oxycodone/Acetaminophen 1 tab 12/04/18 20:10 12/07/18 10:23 Percocet 5/325 PO 1 tab Q6H PRN Administration Pain, Moderate (4-6) Pravastatin Sodium 20 mg 12/05/18 10:00 12/07/18 10:21 Pravachol PO 20 mg DAILY MARY GRACE Administration Quetiapine Fumarate 200 mg 12/05/18 22:00 12/06/18 22:16 Seroquel PO 200 mg QHS MARY GRACE Administration Ropinirole HCl 1 mg 12/04/18 22:00 12/06/18 22:16 Requip PO 1 mg QHS MARY GRACE Administration Sodium Chloride 10 ml 12/04/18 22:00 12/07/18 10:26 Sodium Chloride Flush Syringe 10 Ml IV 10 ml BID MARY GRACE Administration Sodium Chloride 10 ml 12/04/18 20:10 Sodium Chloride Flush Syringe 10 Ml IV PRN PRN LINE FLUSH Tamsulosin HCl 0.4 mg 12/05/18 10:00 12/07/18 10:22 Flomax PO 0.4 mg QDAY MARY GRACE Administration Venlafaxine HCl 150 mg 12/05/18 18:18 12/07/18 10:22 Effexor Xr PO 150 mg QDAY MARY GRACE Administration
--- NOTE | 2018-12-07 14:09 | Event Note ---
Date: 12/07/18 Pt c/o a bout of SOB and chest pain. ECG with NAF, trop negative for AMI. Pt may still discharge home from cardiology standpoint. Katalina PALMER NP / DR. LAGUNAS
[2018-12-07 17:10] VITALS: BP 162/65
== END 2018-12-07 17:21 | disposition home or self-care (01) | DRG 683 ==
LOC: ED 16:05 → 4A 20:10 → OBSVTOIN 12-05 15:25
PROVIDERS: ADMIT Internal Medicine; ATTEND Internal Medicine
DX: N17.0 Acute kidney failure with tubular necrosis (principal); F33.3 Major depressive disorder, recurrent, severe with psychotic symptoms; I49.5 Sick sinus syndrome; F29 Unspecified psychosis not due to a substance or known physiological condition; N40.0 Benign prostatic hyperplasia without lower urinary tract symptoms; G25.81 Restless legs syndrome; M13.0 Polyarthritis, unspecified; I48.91 Unspecified atrial fibrillation; E78.5 Hyperlipidemia, unspecified; F41.9 Anxiety disorder, unspecified; I11.9 Hypertensive heart disease without heart failure; E66.9 Obesity, unspecified; H54.8 Legal blindness, as defined in USA; I08.1 Rheumatic disorders of both mitral and tricuspid valves; G47.33 Obstructive sleep apnea (adult) (pediatric); Z68.38 Body mass index [BMI] 38.0-38.9, adult
CPT/HCPCS: 36415; 70450; 70551; 71045; 71046; 72125; 76775; 78452; 80048; 80053; 80061; 81001; 82550; 83036; 83735; 83970; 84100; 84443; 84484; 85025; 85027; 85379; 85610; 93005; 93010; 93017; 93306; 93880; 94640; 94760; 95819; 96374; 99285; G0378; A9270-GY; A9502; J1644; J1940; J2785; J7030; J7040

== ENCOUNTER 2019-05-13 11:29 | Emergency (ER) | payer MEDICARE ==
--- NOTE | 2019-05-13 12:54 | Emergency Department Report ---
Blank Doc - Documentation Documentation: 63-year-old male that presents with lower back pain s/p fall. Denies any LOC and head trauma or any other injuries. This initial assessment/diagnostic orders/clinical plan/treatment(s) is/are subject to change based on patient's health status, clinical progression and re-assessment by fellow clinical providers in the ED. Further treatment and workup at subsequent clinical providers discretion. Patient/guardians urged not to elope from the ED as their condition may be serious if not clinically assessed and managed. Initial orders include: 1- Patient sent to [facility] for further evaluation and treatment 2- xrays
[2019-05-13 12:55] VITALS: BP 140/84
--- NOTE | 2019-05-13 13:28 | Emergency Department Report ---
ED Back Pain/Injury HPI - General Chief Complaint: Back Pain/Injury Stated Complaint: BACK INJURY Time Seen by Provider: 05/13/19 12:53 Source: patient Limitations: No Limitations - History of Present Illness Initial Comments: This is a 63-year-old male presents to ED complaining of lower back pain after accidentally slipping fall from ground level last week Monday. Patient states for about a week now he is having lower back pain since his fall. Patient denies any injury to the head or neck or difficulty walking. Patient states that pain is initially started on his lower back and sometimes radiates down his right thigh. He denies loss of sensation or any other symptoms. MD Complaint: back pain, back injury - Related Data Home Medications Medication Instructions Recorded Confirmed Last Taken Fluticasone Propionate [Flovent 50 mcg IH PRN 12/04/18 12/04/18 Unknown Diskus] Pravastatin [Pravachol] 20 mg PO DAILY 12/04/18 12/04/18 Unknown QUEtiapine [SEROquel] 100 mg PO HS 12/04/18 12/04/18 Unknown Tamsulosin [Flomax] 0.4 mg PO QDAY 12/04/18 12/04/18 Unknown Venlafaxine ER 150 mg PO DAILY 12/04/18 12/04/18 Unknown rOPINIRole [Requip] 1 mg PO QHS 12/04/18 12/04/18 Unknown Previous Rx's Medication Instructions Recorded Last Taken Type Aspirin EC [Halfprin EC] 81 mg PO QDAY #30 tablet. 12/07/18 Unknown Rx amLODIPine 5 mg PO DAILY #30 tab 12/07/18 Unknown Rx Cyclobenzaprine [Flexeril] 10 mg PO QHS PRN #20 tablet 05/13/19 Unknown Rx Ibuprofen [Motrin 800 MG tab] 800 mg PO Q8HR PRN #30 tablet 05/13/19 Unknown Rx Allergies Allergy/AdvReac Type Severity Reaction Status Date / Time No Known Allergies Allergy Verified 12/04/18 20:26 ED Review of Systems ROS: Stated complaint: BACK INJURY Other details as noted in HPI Comment: All other systems reviewed and negative ED Past Medical Hx - Past Medical History high cholesterol. wrestless leg syndrome. BPH ED Back Pain Physical Exam - Exam General: Vital signs noted. No distress. Alert and acting appropriately. Back/Abdomen: No Abdominal Tenderness, No Perithoracic Tenderness, No Perilumbar Tenderness, No Sacroiliac Tenderness, No Flank Tenderness, No Straight Leg Raise Pain Neuro: Yes Normal Sensation, Yes Normal DTR's, Yes Normal Gait, No Motor Weakness ED Course Vital Signs 05/13/19 12:53 Temperature 97.6 F Pulse Rate 82 Respiratory 18 Rate Blood Pressure 140/84 O2 Sat by Pulse 97 Oximetry Ed Back Pain Tests - Tests Tests: Normal X Rays ED Medical Decision Making - Radiology Data Radiology results: image reviewed Impression: Mild DJD, L4 -L5 and L5-S1 most affected Exide all other joints are unremarkable No acute bone abnormality - Medical Decision Making 63-year-old male presents to ED with lumbar radiculopathy aggravated by recent fall weeks ago ED course: Patient received Toradol and prednisone in ED. Vital signs are normal patient is in no acute distress Discussed with patient follow-up with primary care physician. Discussed the patient and take medications as prescribed. Patient has no neurological deficit. Patient is alert and oriented 3 and understands all instructions given. He is ambulatory without any problems Discussed drowsiness effect of Flexeril makes her drowsy and not to operate machinery while taking flexeril Critical care attestation.: If time is entered above; I have spent that time in minutes in the direct care of this critically ill patient, excluding procedure time. ED Disposition Clinical Impression: Strain of muscle, fascia and tendon of lower back, initial encounter Disposition: - TO HOME OR SELFCARE Is pt being admited?: No Does the pt Need Aspirin: No Condition: Stable Instructions: Muscle Strain (ED), Lumbar Radiculopathy (ED) Additional Instructions: Make sure to follow up with the primary care physician as discussed. Take all your medications as you've been prescribed. If you have any worsening symptoms or develop new symptoms please return to ED immediately. Prescriptions: Cyclobenzaprine [Flexeril] 10 mg PO QHS PRN #20 tablet PRN Reason: Muscle Spasm Ibuprofen [Motrin 800 MG tab] 800 mg PO Q8HR PRN #30 tablet PRN Reason: Pain Referrals: PRIMARY CARE, [Primary Care Provider] - 3-5 Days AL WHARTON MD [Staff Physician] - 3-5 Days [facility] [Outside] - 3-5 Days [facility] [Outside] - 3-5 Days Forms: Work/School Release Form(ED) Time of Disposition: 14:10
--- NOTE | 2019-05-13 13:33 | XRay Report ---
LUMBOSACRAL SPINE, 3 VIEWS INDICATION: lower back pain s/p fall. COMPARISON: None. IMPRESSION: Normal alignment. Mild multilevel discogenic disc disease and facet arthropathy are pia ntified. L4-5 and L5-S1 is the most affected levels. The generalized sacrum and SI joints are unremar kable. No acute osseous or soft tissue abnormality. Signer Name: Rodney Rodriguez Jr, MD Signed: 05/13/2019 1:29 PM Workstation Name: [id number]
[2019-05-13] MEDS ORDERED: KETOROLAC 30 MG/1 ML INJ IM ONE (14:08)
[2019-05-13] MEDS ORDERED: predniSONE 20 MG TAB PO ONE (14:09)
== END 2019-05-13 15:20 | disposition home or self-care (01) ==
LOC: ED 11:29
DX: S39.012A Strain of muscle, fascia and tendon of lower back, initial encounter (principal); Z79.899 Other long term (current) drug therapy; Z79.82 Long term (current) use of aspirin; Z79.1 Long term (current) use of non-steroidal anti-inflammatories (NSAID); W01.198A Fall on same level from slipping, tripping and stumbling with subsequent striking against other object, initial encounter; Y93.89 Activity, other specified; Y92.89 Other specified places as the place of occurrence of the external cause; Y99.8 Other external cause status
CPT/HCPCS: 72100; 96372; 99283; J1885; J7512

== ENCOUNTER 2019-05-31 06:44 | Observation (INO) | payer MEDICARE ==
[2019-05-31] MEDS ORDERED: ONDANSETRON 4 MG/2 ML INJ IV ONE (07:34)
[2019-05-31] MEDS ORDERED: fentaNYL 100 MCG/2 ML INJ IV ONE (07:34)
--- NOTE | 2019-05-31 07:39 | Emergency Department Report ---
HPI - General Time Seen by Provider: 05/31/19 07:24 - HPI HPI: Room 6 The patient is 63-year-old male presenting with a chief complaint of right flank pain. The patient states for the past 2-3 days he has had pain in his right flank that has been constant in nature. Patient states his pain increases with certain movements. Patient denies any preceding trauma. Patient denies nausea or vomiting. Patient denies dysuria or hematuria. Patient denies history of fever. The patient gives his pain score of 10/10 Location: [See above] Duration: [See above] Quality: [See above] Severity: [See above] Timing: [See above] Context: [See above] Modifying factors: [See above] Associated signs and symptoms: [see above] Mode of transportation: EMS. Patient is not drawn ED Past Medical Hx - Past Medical History Previous Medical History?: Yes Hx Hypertension: Yes Hx CVA: Yes (S/P surgery in 2011) Additional medical history: high cholesterol. restless leg syndrome. BPH - Surgical History Additional Surgical History: knee surgery, left kidney removal - Family History Family history: no significant - Social History Smoking Status: Never Smoker Substance Use Type: None (denies illicit drug use) - Medications Home Medications: Home Medications Medication Instructions Recorded Confirmed Last Taken Type Fluticasone Propionate [Flovent 50 mcg IH PRN 12/04/18 12/04/18 Unknown History Diskus] Pravastatin [Pravachol] 20 mg PO DAILY 12/04/18 12/04/18 Unknown History QUEtiapine [SEROquel] 100 mg PO HS 12/04/18 12/04/18 Unknown History Tamsulosin [Flomax] 0.4 mg PO QDAY 12/04/18 12/04/18 Unknown History Venlafaxine ER 150 mg PO DAILY 12/04/18 12/04/18 Unknown History rOPINIRole [Requip] 1 mg PO QHS 12/04/18 12/04/18 Unknown History Aspirin EC [Halfprin EC] 81 mg PO QDAY #30 tablet. 12/07/18 Unknown Rx amLODIPine 5 mg PO DAILY #30 tab 12/07/18 Unknown Rx Cyclobenzaprine [Flexeril] 10 mg PO QHS PRN #20 tablet 05/13/19 Unknown Rx Ibuprofen [Motrin 800 MG tab] 800 mg PO Q8HR PRN #30 tablet 05/13/19 Unknown Rx ED Review of Systems ROS: Stated complaint: BACK/FLANK PAIN Other details as noted in HPI Constitutional: denies: fever Eyes: denies: eye pain ENT: denies: throat pain Respiratory: no symptoms reported Cardiovascular: denies: chest pain Endocrine: no symptoms reported Gastrointestinal: denies: abdominal pain, nausea, vomiting Genitourinary: denies: dysuria, hematuria Musculoskeletal: back pain Neurological: denies: headache Physical Exam - Physical Exam Vital Signs: Vital Signs 05/31/19 07:25 Temperature 98.3 F Pulse Rate 103 H Respiratory 15 Rate Blood Pressure 137/90 O2 Sat by Pulse 96 Oximetry Physical Exam: GENERAL: The patient is well-developed well-nourished male lying on stretcher not appearing to be in acute distress. [] HEENT: Normocephalic. Atraumatic. Extraocular motions are intact. Patient has moist mucous membranes. NECK: Supple. Trachea midline CHEST/LUNGS: Clear to auscultation. There is no respiratory distress noted. HEART/CARDIOVASCULAR: Regular. There is no tachycardia. There is no gallop rub or murmur. ABDOMEN: Abdomen is soft, nontender. Patient has normal bowel sounds. There is no abdominal distention. SKIN: There is no rash. There is no edema. There is no diaphoresis. NEURO: The patient is awake, alert, and oriented. The patient is cooperative. The patient has normal speech MUSCULOSKELETAL: There is right CVA tenderness. There is no evidence of acute injury. ED Course Vital Signs 05/31/19 07:25 Temperature 98.3 F Pulse Rate 103 H Respiratory 15 Rate Blood Pressure 137/90 O2 Sat by Pulse 96 Oximetry - Consultations Consultation #1: 05/31/19 09:59 Nephrology paged 05/31/19 10:[address] Urias- recommends admission to the hospital for observation, IV fluids and potentially antibiotics. ED Medical Decision Making - Lab Data Result diagrams: 05/31/19 07:45 05/31/19 07:45 Laboratory Tests 05/31/19 05/31/19 05/31/19 07:45 07:45 09:03 WBC 6.1 RBC 4.86 Hgb 14.3 Hct 42.8 MCV 88 MCH 30 MCHC 34 RDW 15.3 H Plt Count 143 Lymph % (Auto) 13.5 [place] % (Auto) 7.1 Eos % (Auto) 0.1 Baso % (Auto) 0.3 Lymph # 0.8 L [place] # 0.4 Eos # 0.0 Baso # 0.0 Seg Neutrophils % 79.0 H Seg Neutrophils # 4.8 Sodium 132 L Potassium 4.5 Chloride 92.3 L Carbon Dioxide 23 Anion Gap 21 BUN 46 H Creatinine 2.2 H Estimated GFR 30 BUN/Creatinine Ratio 21 Glucose 92 Calcium 9.4 Total Bilirubin 2.30 H AST 19 ALT 23 Alkaline Phosphatase 82 Total Protein 6.7 Albumin 4.3 Albumin/Globulin Ratio 1.8 Urine Color Yellow Urine Turbidity Clear Urine pH 5.0 Ur Specific [place] 1.021 Urine Protein <15 mg/dl Urine Glucose (UA) Neg Urine Ketones 20 Urine Blood Neg Urine Nitrite Neg Urine Bilirubin Neg Urine Urobilinogen 4.0 Ur Leukocyte Esterase Tr Urine WBC (Auto) 13.0 H Urine RBC (Auto) 2.0 U Epithel Cells (Auto) 1.0 Urine Bacteria (Auto) 1+ Urine Mucus Few - Radiology Data Radiology results: report reviewed (CT abdomen and pelvis), image reviewed (CT abdomen and pelvis) [address] [address] Cat Scan Report Signed Patient: MYCHAL LAMA MR#: [id number] : 1955 Acct:[id number] Age/Sex: 63 / M ADM Date: 05/31/19 Loc: ED Attending Dr: Ordering Physician: JYOTI SEQUEIRA MD Date of Service: 05/31/19 Procedure(s): CT abdomen pelvis wo con Accession Number(s): [id number] cc: JYOTI SEQUEIRA MD CT ABDOMEN AND PELVIS WITHOUT CONTRAST INDICATION / CLINICAL INFORMATION: right flank pain. TECHNIQUE: Axial CT images were obtained through the abdomen and pelvis without IV contrast. All CT scans at this location are performed using CT dose reduction for [facility] by means of automated exposure control. COMPARISON: None available. FINDINGS: LOWER CHEST: No significant abnormality. LIVER: No significant abnormality. GALLBLADDER: Mildly distended but without pericholecystic inflammatory change. BILE DUCTS: No significant abnormality. PANCREAS: No significant abnormality. SPLEEN: No significant abnormality. ADRENALS: No significant abnormality. RIGHT KIDNEY and URETER: No significant abnormality. LEFT KIDNEY and URETER: Prior left nephrectomy. There is a circumscribed fat containing structure with internal soft tissue nodularity within the nephrectomy bed. STOMACH and SMALL BOWEL: No significant abnormality. COLON: No significant abnormality. APPENDIX: No significant abnormality. PERITONEUM: No free fluid. No free air. No fluid collection. LYMPH NODES: No significant adenopathy. AORTA and ARTERIES: No significant abnormality. IVC and VEINS: No significant abnormality. URINARY BLADDER: No significant abnormality. REPRODUCTIVE ORGANS: No significant abnormality. ADDITIONAL FINDINGS: Evidence of prior right inguinal hernia repair. Postsurgical change in the anterior abdominal wall. SKELETAL SYSTEM: No significant abnormality. IMPRESSION: 1. No acute process identified within the abdomen or pelvis on noncontrast examination to account for right flank pain. There is no hydronephrosis or nephrolithiasis. 2. Prior left nephrectomy. A circumscribed fat containing structure with internal soft tissue nodularity is seen in the nephrectomy bed. While this may reflect postsurgical change, recommend correlation with clinical history and any prior imaging if available. If no prior imaging available, consider surveillance CT to ensure ongoing stability. Signer Name: Elisabet Herndon MD Signed: 05/31/2019 9:32 AM Workstation Name: [id number] Transcribed By: [facility] Dictated By: Elisabet Herndon MD Electronically Authenticated By: Elisabet Herndon MD Signed Date/Time: 05/31/19931 DD/ 2 TD/TT: - Differential Diagnosis renal colic, lumbar radiculopathy, pyelonephritis, UTI Critical care attestation.: If time is entered above; I have spent that time in minutes in the direct care of this critically ill patient, excluding procedure time. ED Disposition Clinical Impression: Acute right flank pain Disposition: OP ADMIT IP TO THIS HOSP Is pt being admited?: Yes Does the pt Need Aspirin: No Condition: Fair Time of Disposition: 10:16 (hospitalist paged)
[2019-05-31 08:07] LABS: Basophils % (Auto) 0.3 % (0.0-1.8); Eosinophils % (Auto) 0.1 % (0.0-4.3); Hematocrit 42.8 % (35.5-45.6); Hemoglobin 14.3 gm/dl (11.8-15.2); Lymphocytes # (Auto) 0.8 K/mm3 (1.2-5.4); Lymphocytes % (Auto) 13.5 % (13.4-35.0); Mean Corpuscular HGB Conc 34 % (32-34); Mean Corpuscular Volume 88 fl (84-94); Monocytes # (Auto) 0.4 K/mm3 (0.0-0.8); Monocytes % (Auto) 7.1 % (0.0-7.3); Platelet Count 143 K/mm3 (140-440); Red Blood Count 4.86 M/mm3 (3.65-5.03); Red Cell Distribution Width 15.3 % (13.2-15.2)
[2019-05-31 08:27] LABS: Albumin 4.3 g/dL (3.9-5); Calcium 9.4 mg/dL (8.4-10.2)
--- NOTE | 2019-05-31 09:37 | Cat Scan Report ---
CT ABDOMEN AND PELVIS WITHOUT CONTRAST INDICATION / CLINICAL INFORMATION: right flank pain. TECHNIQUE: Axial CT images were obtained through the abdomen and pelvis without IV contrast. All CT scans at [facility] location are performed using CT dose reduction for [place] by means of automated exposure control. COMPARISON: None available. FINDINGS: LOWER CHEST: No significant abnormality. LIVER: No significant abnormality. GALLBLADDER: Mildly distended but without pericholecystic inflammatory change. BILE DUCTS: No significant abnormality. PANCREAS: No significant abnormality. SPLEEN: No significant abnormality. ADRENALS: No significant abnormality. RIGHT KIDNEY and URETER: No significant abnormality. LEFT KIDNEY and URETER: Prior left nephrectomy. There is a circumscribed fat containing structure wit h internal soft tissue nodularity within the nephrectomy bed. STOMACH and SMALL BOWEL: No significant abnormality. COLON: No significant abnormality. APPENDIX: No significant abnormality. PERITONEUM: No free fluid. No free air. No fluid collection. LYMPH NODES: No significant adenopathy. AORTA and ARTERIES: No significant abnormality. IVC and VEINS: No significant abnormality. URINARY BLADDER: No significant abnormality. REPRODUCTIVE ORGANS: No significant abnormality. ADDITIONAL FINDINGS: Evidence of prior right inguinal hernia repair. Postsurgical change in the anter ior abdominal wall. SKELETAL SYSTEM: No significant abnormality. IMPRESSION: 1. No acute process identified within the abdomen or pelvis on noncontrast examination to account for right flank pain. There is no hydronephrosis or nephrolithiasis. 2. Prior left nephrectomy. A circumscribed fat containing structure with internal soft tissue nodular ity is seen in the nephrectomy bed. While this may reflect postsurgical change, recommend correlation with clinical history and any prior imaging if available. If no prior imaging available, consider horton rveillance CT to ensure ongoing stability. Signer Name: Elisabet Herndon MD Signed: 05/31/2019 9:32 AM Workstation Name: [id number]
[2019-05-31 09:47] LABS: Bacteria,Urine 1+ /HPF (Negative); Bilirubin,Urine NEG (Negative); Blood,Urine NEG (Negative); Color,Urine Yellow (Yellow); Mucus,Urine FEW /HPF; Protein,Urine <15 mg/dL mg/dL (Negative)
[2019-05-31] MEDS ORDERED: SODIUM CHLORIDE 0.9% 1000 ML 1,000 ML IV ONE (10:13)
[2019-05-31] MEDS ORDERED: SULFAMETHOXAZOLE/TRIMETHOPRIM 800/160MG DS TAB PO ONE (10:14)
[2019-05-31] MEDS ORDERED: NALOXONE 0.4 MG/1 ML INJ IV PRN (10:42)
[2019-05-31] MEDS ORDERED: ALBUTEROL 2.5 MG/3 ML NEBU IH PRN (10:42)
[2019-05-31] MEDS ORDERED: ACETAMINOPHEN 325 MG TAB PO PRN (10:42)
[2019-05-31] MEDS ORDERED: ONDANSETRON 4 MG/2 ML INJ IV PRN (10:42)
[2019-05-31] MEDS ORDERED: ALUM-MAG HYDROXIDE-SIMETHICONE 200-200-20MG/5ML ORAL LIQD 30 ML PO PRN (10:42)
[2019-05-31] MEDS ORDERED: CYCLOBENZAPRINE 10 MG TAB PO PRN (10:44)
[2019-05-31] MEDS ORDERED: FLUTICASONE PROPIONATE 50 MCG IH SCH (10:45)
--- NOTE | 2019-05-31 10:46 | History and Physical Report ---
History of Present Illness Date of examination: 05/31/19 Date of admission: 05/31/19 10:19 Chief complaint: right flank pain History of present illness: Patient is 63-year-old male with hx of CVA IN 2011, LEFT NEPHRECTOMY (unsure as to why) ?Related to nephrolithasis and hx of Major depressive disorder, KATI, BPH, Bradycardia, hyperlipidemia and anxiety disorder presenting with a chief complaint of right flank pain. The patient states for the past 2-3 days he has had pain in his right flank that has been constant in nature. Patient states his pain increases with certain movements. Patient denies any preceding trauma. Patient denies nausea or vomiting. Patient denies dysuria or hematuria. Patient denies history of fever. The patient gives his pain score of 10/10 - Past Medical History Hx Hypertension: Yes Hx CVA: Yes (S/P surgery in 2011) Additional medical history: high cholesterol. restless leg syndrome. BPH - Surgical History Additional Surgical History: knee surgery, left kidney removal - Family History Family history: no significant - Social History Smoking Status: Never Smoker Substance Use Type: None (denies illicit drug use) - Discharge Diagnoses (1) Vasomotor nephropathy Status: Acute (2) MDD (major depressive disorder) Status: Acute (3) Psychosis Status: Acute (4) MILTON (acute kidney injury) Status: Acute (5) Syncope Status: Acute (6) HTN (hypertension) Status: Chronic (7) KATI (obstructive sleep apnea) Status: Suspected (8) Hypernatremia Status: Acute (9) Bradycardia Status: Acute Past History Past Medical History: COPD, hypertension, hyperlipidemia, renal failure Social history: no significant social history Family history: no significant family history Medications and Allergies Allergies Allergy/AdvReac Type Severity Reaction Status Date / Time No Known Allergies Allergy Verified 12/04/18 20:26 Home Medications Medication Instructions Recorded Confirmed Last Taken Type Fluticasone Propionate [Flovent 50 mcg IH PRN 12/04/18 12/04/18 Unknown History Diskus] Pravastatin [Pravachol] 20 mg PO DAILY 12/04/18 12/04/18 Unknown History QUEtiapine [SEROquel] 100 mg PO HS 12/04/18 12/04/18 Unknown History Tamsulosin [Flomax] 0.4 mg PO QDAY 12/04/18 12/04/18 Unknown History Venlafaxine ER 150 mg PO DAILY 12/04/18 12/04/18 Unknown History rOPINIRole [Requip] 1 mg PO QHS 12/04/18 12/04/18 Unknown History Aspirin EC [Halfprin EC] 81 mg PO QDAY #30 tablet. 12/07/18 Unknown Rx amLODIPine 5 mg PO DAILY #30 tab 12/07/18 Unknown Rx Cyclobenzaprine [Flexeril] 10 mg PO QHS PRN #20 tablet 05/13/19 Unknown Rx Ibuprofen [Motrin 800 MG tab] 800 mg PO Q8HR PRN #30 tablet 05/13/19 Unknown Rx Active Meds: Active Medications Acetaminophen (Tylenol) 650 mg PO Q4H PRN PRN Reason: Pain MILD(1-3)/Fever >100.5/SANTANA Al Hydrox/Mg Hydrox/Simethicone (Alum-Mag Hydrox-Simeth [phone]/5ml) 30 ml PO Q4H PRN PRN Reason: Indigestion Albuterol (Proventil) 2.5 mg IH Q4HRT PRN PRN Reason: Shortness Of Breath Amlodipine Besylate (Amlodipine) 5 mg PO DAILY MARY GRACE Aspirin (Halfprin Ec) 81 mg PO QDAY [facility] GRACE Cyclobenzaprine HCl (Flexeril) 10 mg PO QHS PRN PRN Reason: Muscle Spasm Sodium Chloride (Nacl 0.9% 1000 Ml) 1,000 mls @ 999 mls/hr IV ONCE ONE Stop: 05/31/19 11:13 Cefepime HCl (Cefepime/Ns 1 Gm/100 Ml) 1 gm in 100 mls @ 200 mls/hr IV Q8HR [facility]; Protocol Miscellaneous Medication (Fluticasone Propionate [Flovent Diskus]) 50 mcg IH PRN MARY GRACE Morphine Sulfate (Morphine) 2 mg IV Q4H PRN PRN Reason: Pain, Moderate (4-6) Naloxone HCl (Naloxone) 0.1 mg IV Q2MIN PRN PRN Reason: Res Rate </= 8 or 02 SAT < 92% Ondansetron HCl (Zofran) 4 mg IV Q8H PRN PRN Reason: Nausea And Vomiting Pravastatin Sodium (Pravachol) 20 mg PO DAILY [facility] Quetiapine Fumarate (Seroquel) 100 mg PO HS [facility] Ropinirole HCl (Requip) 1 mg PO QHS [facility] Sodium Chloride (Sodium Chloride Flush Syringe 10 Ml) 10 ml IV BID [facility]ARY GRACE Sodium Chloride (Sodium Chloride Flush Syringe 10 Ml) 10 ml IV PRN PRN PRN Reason: LINE FLUSH Review of Systems All systems: negative Constitutional: malaise Exam - Constitutional Vitals: Temp Pulse Resp BP Pulse Ox 98.3 F 88 18 129/82 97 05/31/19 07:25 05/31/19 09:17 05/31/19 09:17 05/31/19 09:17 05/31/19 09:17 General appearance: Present: no acute distress, well-nourished - EENT Eyes: Present: PERRL, EOM intact ENT: hearing intact - Neck Neck: Present: normal ROM - Respiratory Respiratory effort: normal Respiratory: bilateral: CTA - Cardiovascular Rhythm: regular Heart Sounds: Present: S1 & S2. Absent: systolic murmur, diastolic murmur - Extremities Extremities: no ischemia, pulses intact, pulses symmetrical, No edema, normal temperature, normal color, Full ROM Peripheral Pulses: within normal limits - Abdominal General gastrointestinal: Present: soft, tender, non-distended, normal bowel sounds Localized gastrointestinal: tender: RLQ - Integumentary Integumentary: Present: clear, warm, dry - Musculoskeletal Musculoskeletal: strength equal bilaterally - Psychiatric Psychiatric: appropriate mood/affect, intact judgment & insight, memory intact, cooperative - Neurologic Neurologic: CNII-XII intact, moves all extremities, gait normal - Allied Health Allied health notes reviewed: nursing Results - Labs CBC & Chem 7: 05/31/19 07:45 05/31/19 07:45 Labs: Laboratory Last Values WBC 6.1 K/mm3 (4.5-11.0) 05/31/19 07:45 RBC 4.86 M/mm3 (3.65-5.03) 05/31/19 07:45 Hgb 14.3 gm/dl (11.8-15.2) 05/31/19 07:45 Hct 42.8 % (35.5-45.6) 05/31/19 07:45 MCV 88 fl (84-94) 05/31/19 07:45 MCH 30 pg (28-32) 05/31/19 07:45 MCHC 34 % (32-34) 05/31/19 07:45 RDW 15.3 % (13.2-15.2) H 05/31/19 07:45 Plt Count 143 K/mm3 (140-440) 05/31/19 07:45 Lymph % (Auto) 13.5 % (13.4-35.0) 05/31/19 07:45 [place] % (Auto) 7.1 % (0.0-7.3) 05/31/19 07:45 Eos % (Auto) 0.1 % (0.0-4.3) 05/31/19 07:45 Baso % (Auto) 0.3 % (0.0-1.8) 05/31/19 07:45 Lymph # 0.8 K/mm3 (1.2-5.4) L 05/31/19 07:45 [place] # 0.4 K/mm3 (0.0-0.8) 05/31/19 07:45 Eos # 0.0 K/mm3 (0.0-0.4) 05/31/19 07:45 Baso # 0.0 K/mm3 (0.0-0.1) 05/31/19 07:45 Seg Neutrophils % 79.0 % (40.0-70.0) H 05/31/19 07:45 Seg Neutrophils # 4.8 K/mm3 (1.8-7.7) 05/31/19 07:45 Sodium 132 mmol/L (137-145) L 05/31/19 07:45 Potassium 4.5 mmol/L (3.6-5.0) 05/31/19 07:45 Chloride 92.3 mmol/L (98-107) L 05/31/19 07:45 Carbon Dioxide 23 mmol/L (22-30) 05/31/19 07:45 Anion Gap 21 mmol/L 05/31/19 07:45 BUN 46 mg/dL (9-20) H 05/31/19 07:45 Creatinine 2.2 mg/dL (0.8-1.5) H 05/31/19 07:45 Estimated GFR 30 ml/min 05/31/19 07:45 BUN/Creatinine Ratio 21 % 05/31/19 07:45 Glucose 92 mg/dL (75-100) 05/31/19 07:45 Calcium 9.4 mg/dL (8.4-10.2) 05/31/19 07:45 Total Bilirubin 2.30 mg/dL (0.1-1.2) H 05/31/19 07:45 AST 19 units/L (5-40) 05/31/19 07:45 ALT 23 units/L (7-56) 05/31/19 07:45 Alkaline Phosphatase 82 units/L (35-129) 05/31/19 07:45 Total Protein 6.7 g/dL (6.3-8.2) 05/31/19 07:45 Albumin 4.3 g/dL (3.9-5) 05/31/19 07:45 Albumin/Globulin Ratio 1.8 % 05/31/19 07:45 Urine Color Yellow (Yellow) 05/31/19 09:03 Urine Turbidity Clear (Clear) 05/31/19 09:03 Urine pH 5.0 (5.0-7.0) 05/31/19 09:03 Ur Specific [place] 1.021 (1.003-1.030) 05/31/19 09:03 Urine Protein <15 mg/dl mg/dL (Negative) 05/31/19 09:03 Urine Glucose (UA) Neg mg/dL (Negative) 05/31/19 09:03 Urine Ketones 20 mg/dL (Negative) 05/31/19 09:03 Urine Blood Neg (Negative) 05/31/19 09:03 Urine Nitrite Neg (Negative) 05/31/19 09:03 Urine Bilirubin Neg (Negative) 05/31/19 09:03 Urine Urobilinogen 4.0 mg/dL (<2.0) 05/31/19 09:03 Ur Leukocyte Esterase Tr (Negative) 05/31/19 09:03 Urine WBC (Auto) 13.0 /HPF (0.0-6.0) H 05/31/19 09:03 Urine RBC (Auto) 2.0 /HPF (0.0-6.0) 05/31/19 09:03 U Epithel Cells (Auto) 1.0 /HPF (0-13.0) 05/31/19 09:03 Urine Bacteria (Auto) 1+ /HPF (Negative) 05/31/19 09:03 Urine Mucus Few /HPF 05/31/19 09:03 Assessment and Plan Assessment and plan: Patient is 63-year-old male with hx of CVA IN 2012, LEFT NEPHRECTOMY (unsure as to why) ?Related to nephrolithasis and hx of Major depressive disorder, KATI, BPH, Bradycardia, hyperlipidemia and anxiety disorder presenting with a chief complaint of right flank pain. The patient states for the past 2-3 days he has had pain in his right flank that has been constant in nature. Patient states his pain increases with certain movements. Patient denies any preceding trauma. Patient denies nausea or vomiting. Patient denies dysuria or hematuria. Patient denies history of fever. The patient gives his pain score of 10/10 (1) MILTON (acute kidney injury) Vasomotor nephropathy (2) MDD (major depressive disorder) (3) Acute Cystitis (4) HTN (hypertension) (5) KATI (obstructive sleep apnea) (6) Hyponatremia (7) Bradycardia Plan Admit to medsurg Start on Antibiotics with cefepime Obtain urine cultures Restart Home meds If no improvement, obtain Ultrasound of the renal DVT/GI prophy If improving in am, patient can be discharged. Advance Directives: Yes Plan of care discussed with patient/family: Yes
[2019-05-31] MEDS ORDERED: SULFAMETHOXAZOLE/TRIMETHOPRIM 800/160MG DS TAB ONE (10:57)
[2019-05-31] MEDS ORDERED: SODIUM CHLORIDE 0.9% 1000 ML 1,000 ML ONE (10:57)
[2019-05-31] MEDS: amLODIPine 5 MG TAB PO SCH (12:58)
[2019-05-31] MEDS: CEFEPIME/NS 1 GM/100 ML 1 GM/100 ML BAG IV SCH ×2 (12:58→23:25)
[2019-05-31] MEDS: VENLAFAXINE XR 75 MG CAP PO SCH (16:32)
[2019-05-31] MEDS: TAMSULOSIN 0.4 MG CAP PO SCH (16:33)
--- NOTE | 2019-05-31 17:32 | Consultation ---
History of Present Illness - Reason for Consult acute renal failure - History of Present Illness This is a 63 year old man with unilateral kidney who presents with right sided flank pain. He notes that in 2011, he accidentally had a left kidney removed; he notes that there was a mass on the kidney but "they took the whole thing out". Since then, he denies any kidney problems. No known history of kidney stones. He began to have severe flank pain suddenly this morning and came for evaluation. He was found to have MILTON with creatinine 2.2, with last creatinine 1.4 in summer 2018. No dyspnea, no dysuria, no hematuria, no chest pain, normal appetite. Past History Past Medical History: COPD, hypertension, hyperlipidemia, renal failure Social history: no significant social history Family history: no significant family history Medications and Allergies Allergies Allergy/AdvReac Type Severity Reaction Status Date / Time No Known Allergies Allergy Verified 12/04/18 20:26 Home Medications Medication Instructions Recorded Confirmed Last Taken Type Fluticasone Propionate [Flovent 50 mcg IH PRN 12/04/18 12/04/18 Unknown History Diskus] Pravastatin [Pravachol] 20 mg PO DAILY 12/04/18 12/04/18 Unknown History QUEtiapine [SEROquel] 100 mg PO HS 12/04/18 12/04/18 Unknown History Tamsulosin [Flomax] 0.4 mg PO QDAY 12/04/18 12/04/18 Unknown History Venlafaxine ER 150 mg PO DAILY 12/04/18 12/04/18 Unknown History rOPINIRole [Requip] 1 mg PO QHS 12/04/18 12/04/18 Unknown History Aspirin EC [Halfprin EC] 81 mg PO QDAY #30 tablet.dr 12/07/18 Unknown Rx amLODIPine 5 mg PO DAILY #30 tab 12/07/18 Unknown Rx Cyclobenzaprine [Flexeril] 10 mg PO QHS PRN #20 tablet 05/13/19 Unknown Rx Ibuprofen [Motrin 800 MG tab] 800 mg PO Q8HR PRN #30 tablet 05/13/19 Unknown Rx Active Meds: Active Medications Acetaminophen (Tylenol) 650 mg PO Q4H PRN PRN Reason: Pain MILD(1-3)/Fever >100.5/SANTANA Al Hydrox/Mg Hydrox/Simethicone (Alum-Mag Hydrox-Simeth [id number]/5ml) 30 ml PO Q4H PRN PRN Reason: Indigestion Albuterol (Proventil) 2.5 mg IH Q4H PRN PRN Reason: Shortness Of Breath Amlodipine Besylate (Amlodipine) 5 mg PO DAILY [facility] Last Admin: 05/31/19 12:58 Dose: 5 mg Documented by: Aspirin (Halfprin Ec) 81 mg PO QDAY [facility] Budesonide (Pulmicort) 0.5 mg IH Q12HRT [facility] Cyclobenzaprine HCl (Flexeril) 10 mg PO QHS PRN PRN Reason: Muscle Spasm Cefepime HCl (Cefepime/Ns 1 Gm/100 Ml) 1 gm in 100 mls @ 200 mls/hr IV Q12H [facility]; Protocol Last Admin: 05/31/19 12:58 Dose: 200 mls/hr Documented by: Morphine Sulfate (Morphine) 2 mg IV Q4H PRN PRN Reason: Pain, Moderate (4-6) Naloxone HCl (Naloxone) 0.1 mg IV Q2MIN PRN PRN Reason: Res Rate </= 8 or 02 SAT < 92% Ondansetron HCl (Zofran) 4 mg IV Q8H PRN PRN Reason: Nausea And Vomiting Pravastatin Sodium (Pravachol) 20 mg PO QHS [facility] Quetiapine Fumarate (Seroquel) 100 mg PO HS [facility] Ropinirole HCl (Requip) 1 mg PO QHS [facility] Sodium Chloride (Sodium Chloride Flush Syringe 10 Ml) 10 ml IV BID [facility] Sodium Chloride (Sodium Chloride Flush Syringe 10 Ml) 10 ml IV PRN PRN PRN Reason: LINE FLUSH Tamsulosin HCl (Flomax) 0.4 mg PO QDAY [facility] Last Admin: 05/31/19 16:33 Dose: 0.4 mg Documented by: Venlafaxine HCl (Effexor Xr) 150 mg PO QDAY [facility] Last Admin: 05/31/19 16:32 Dose: 150 mg Documented by: Review of Systems Constitutional: no weight loss, no fatigue, no weakness Cardiovascular: no chest pain, no orthopnea, no edema Respiratory: no shortness of breath, no dyspnea on exertion Gastrointestinal: no abdominal pain, no nausea, no vomiting, no constipation Genitourinary Male: flank pain, no dysuria, no hematuria, no urinary frequency, no urinary hesitancy Musculoskeletal: no neck stiffness, no neck pain, no low back pain Integumentary: no rash Neurological: no head injury, no parathesias, no tremors, no headaches Psychiatric: no anxiety Exam - Vital Signs Vital signs: Vital Signs Temp Pulse Resp BP Pulse Ox 98.3 F 103 H 15 137/90 96 05/31/19 07:25 05/31/19 07:25 05/31/19 07:25 05/31/19 07:25 05/31/19 07:25 - General Appearance General appearance: well-developed, well-nourished, appears stated age EENT: PERRL, mucous membranes moist Neck: Present: neck supple Respiratory: Clear to Ascultation Heart: regular, S1S2 Gastrointestinal: Present: normoactive bowel sounds. Absent: tenderness, distended Integumentary: no rash, warm and dry Neurologic: no focal deficit, no asterixis, CN 3-12 intact Psychiatric: mood/affect appropriate Results - Lab Results 05/31/19 07:45 05/31/19 07:45 Most recent lab results Calcium 9.4 mg/dL (8.4-10.2) 05/31/19 07:45 Assessment and Plan This is a 63 year old man with unilateral kidney who presents with flank pain. # MILTON: creatinine 2.2 from 1.4; suspect related to UTI, tubular injury, and pre- renal injury. High risk given presence of unilateral kidney. UA with WBCs, otherwise unremarkable. No imaging abnormalities for stone, etc. No known nephrotoxins (no OTC supplements noted, reviewed home meds) - continue supportive measures including IVF as tolerated and antibiotics for presumed UTI - consider renal ultrasound if not improving for closer look at kidneys - avoid nephrotoxins - renally dose meds - consider serologic workup if not improving # HTN: BP at goal, continue current regimen # Flank Pain: unsure cause, no stone seen on CT. Treat UTI per primary; will follow.
[2019-05-31] MEDS: BUDESONIDE 0.5 MG/2 ML NEBU IH SCH (19:45)
[2019-05-31] MEDS: rOPINIRole 1 MG TAB PO SCH (21:38)
[2019-05-31] MEDS: QUEtiapine 100 MG TAB PO SCH (21:38)
[2019-05-31] MEDS: PRAVASTATIN 20 MG TAB PO SCH (21:39)
[2019-06-01 04:59] LABS: Basophils % (Auto) 0.5 % (0.0-1.8); Eosinophils # (Auto) 0.1 K/mm3 (0.0-0.4); Hematocrit 41.6 % (35.5-45.6); Hemoglobin 13.9 gm/dl (11.8-15.2); Lymphocytes # (Auto) 1.2 K/mm3 (1.2-5.4); Lymphocytes % (Auto) 29.1 % (13.4-35.0); Mean Corpuscular HGB Conc 34 % (32-34); Mean Corpuscular Volume 88 fl (84-94); Monocytes # (Auto) 0.5 K/mm3 (0.0-0.8); Monocytes % (Auto) 11.5 % (0.0-7.3); Platelet Count 139 K/mm3 (140-440); Red Blood Count 4.72 M/mm3 (3.65-5.03); Red Cell Distribution Width 15.4 % (13.2-15.2)
[2019-06-01 05:19] LABS: Albumin 3.8 g/dL (3.9-5); Calcium 8.9 mg/dL (8.4-10.2)
[2019-06-01] MEDS: MORPHINE 2 MG/1 ML INJ IV PRN ×2 (07:21→19:33)
[2019-06-01] MEDS: SODIUM CHLORIDE 0.9% 1000 ML 1,000 ML IV SCH (07:21)
[2019-06-01] MEDS ORDERED: VENLAFAXINE 150 MG PO SCH (10:00)
--- NOTE | 2019-06-01 10:07 | Ultrasound Report ---
ULTRASOUND RENAL INDICATION: kike. COMPARISON: CT scan dated 05/31/2019. FINDINGS: RIGHT KIDNEY: Size: 13.8 cm. Echogenicity: Normal. Cortical thickness: Normal. Stones: None. Hydronephrosis: None. Cyst or mass: None. LEFT KIDNEY: Prior nephrectomy. The circumscribed structure described in the left nephrectomy bed on ultrasound performed yesterday is not identifiable as a distinct structure on this ultrasound exam. I f necessary, this will need to be followed with CT. Please see yesterday's CT scan report. Urinary Bladder: No significant abnormality. Free Fluid: None. Additional Findings: None. IMPRESSION 1. No acute sonographic abnormality of the right kidney. Signer Name: Toni Holly MD Signed: 06/01/2019 10:02 AM Workstation Name: [id number]
[2019-06-01 11:01] LABS: Creatinine,Urine 113.7 mg/dL (0.1-20.0)
[2019-06-01] MEDS: amLODIPine 5 MG TAB PO SCH (11:29)
[2019-06-01] MEDS: VENLAFAXINE XR 75 MG CAP PO SCH (11:29)
[2019-06-01] MEDS: TAMSULOSIN 0.4 MG CAP PO SCH (11:29)
[2019-06-01] MEDS: ASPIRIN EC 81 MG TAB PO SCH (11:29)
[2019-06-01] MEDS: CEFEPIME/NS 1 GM/100 ML 1 GM/100 ML BAG IV SCH (11:38)
--- NOTE | 2019-06-01 14:45 | Progress Note ---
Assessment and Plan Assessment and plan: Patient is 63-year-old male with hx of CVA IN 2012, LEFT NEPHRECTOMY (unsure as to why) ?Related to nephrolithasis and hx of Major depressive disorder, KATI, BPH, Bradycardia, hyperlipidemia and anxiety disorder presenting with a chief complaint of right flank pain. The patient states for the past 2-3 days he has had pain in his right flank that has been constant in nature. Patient states his pain increases with certain movements. Patient denies any preceding trauma. Patient denies nausea or vomiting. Patient denies dysuria or hematuria. Patient denies history of fever. The patient gives his pain score of 10/10 (1) MILTON (acute kidney injury) Vasomotor nephropathy (2) MDD (major depressive disorder) (3) Acute Cystitis (4) HTN (hypertension) (5) KATI (obstructive sleep apnea) (6) Hyponatremia (7) Bradycardia Plan Continue supportive care Continue on Antibiotics with cefepime Urine cultures negative Start on Flexril Restart Home meds If no improvement, Renal us shows no significant abnormality DVT/GI prophy Monitor for one more day If improving in am, patient can be discharged. History Interval history: Patient seen and examined, remains with some back pain. 12/10 but stable. Hospitalist Physical - Physical exam Narrative exam: General appearance: Present: no acute distress, well-nourished - EENT Eyes: Present: PERRL, EOM intact ENT: hearing intact - Neck Neck: Present: normal ROM - Respiratory Respiratory effort: normal Respiratory: bilateral: CTA - Cardiovascular Rhythm: regular Heart Sounds: Present: S1 & S2. Absent: systolic murmur, diastolic murmur - Extremities Extremities: no ischemia, pulses intact, pulses symmetrical, No edema, normal temperature, normal color, Full ROM Peripheral Pulses: within normal limits - Abdominal General gastrointestinal: Present: soft, tender, non-distended, normal bowel sounds Localized gastrointestinal: tender: RLQ - Integumentary Integumentary: Present: clear, warm, dry - Musculoskeletal Musculoskeletal: strength equal bilaterally - Psychiatric Psychiatric: appropriate mood/affect, intact judgment & insight, memory intact, cooperative - Neurologic Neurologic: CNII-XII intact, moves all extremities, gait normal - Allied Health Allied health notes reviewed: nursing - Constitutional Vitals: Temp Pulse Resp BP Pulse Ox 97.9 F 114 H 20 140/86 90 06/01/19 11:16 11/30/19 11:29 06/01/19 11:16 06/01/19 11:29 06/01/19 11:16 General appearance: Present: well-nourished Results - Labs CBC & Chem 7: 06/01/19 04:35 06/01/19 04:35 Labs: Laboratory Last Values WBC 4.2 K/mm3 (4.5-11.0) L 06/01/19 04:35 RBC 4.72 M/mm3 (3.65-5.03) 06/01/19 04:35 Hgb 13.9 gm/dl (11.8-15.2) 06/01/19 04:35 Hct 41.6 % (35.5-45.6) 06/01/19 04:35 MCV 88 fl (84-94) 06/01/19 04:35 MCH 30 pg (28-32) 06/01/19 04:35 MCHC 34 % (32-34) 06/01/19 04:35 RDW 15.4 % (13.2-15.2) H 06/01/19 04:35 Plt Count 139 K/mm3 (140-440) L 06/01/19 04:35 Lymph % (Auto) 29.1 % (13.4-35.0) 06/01/19 04:35 [place] % (Auto) 11.5 % (0.0-7.3) H 06/01/19 04:35 Eos % (Auto) 2.0 % (0.0-4.3) 06/01/19 04:35 Baso % (Auto) 0.5 % (0.0-1.8) 06/01/19 04:35 Lymph # 1.2 K/mm3 (1.2-5.4) 06/01/19 04:35 [place] # 0.5 K/mm3 (0.0-0.8) 06/01/19 04:35 Eos # 0.1 K/mm3 (0.0-0.4) 06/01/19 04:35 Baso # 0.0 K/mm3 (0.0-0.1) 06/01/19 04:35 Seg Neutrophils % 56.9 % (40.0-70.0) 06/01/19 04:35 Seg Neutrophils # 2.4 K/mm3 (1.8-7.7) 06/01/19 04:35 Sodium 138 mmol/L (137-145) 06/01/19 04:35 Potassium 3.9 mmol/L (3.6-5.0) 06/01/19 04:35 Chloride 102.0 mmol/L (98-107) 06/01/19 04:35 Carbon Dioxide 26 mmol/L (22-30) 06/01/19 04:35 Anion Gap 14 mmol/L 06/01/19 04:35 BUN 29 mg/dL (9-20) H 06/01/19 04:35 Creatinine 1.7 mg/dL (0.8-1.5) H 06/01/19 04:35 Estimated GFR 41 ml/min 06/01/19 04:35 BUN/Creatinine Ratio 17 % 06/01/19 04:35 Glucose 100 mg/dL (75-100) 06/01/19 04:35 Calcium 8.9 mg/dL (8.4-10.2) 06/01/19 04:35 Total Bilirubin 1.20 mg/dL (0.1-1.2) 06/01/19 04:35 AST 15 units/L (5-40) 06/01/19 04:35 ALT 17 units/L (7-56) 06/01/19 04:35 Alkaline Phosphatase 78 units/L (35-129) 06/01/19 04:35 Total Protein 6.3 g/dL (6.3-8.2) 06/01/19 04:35 Albumin 3.8 g/dL (3.9-5) L 06/01/19 04:35 Albumin/Globulin Ratio 1.5 % 06/01/19 04:35 Urine Color Yellow (Yellow) 05/31/19 09:03 Urine Turbidity Clear (Clear) 05/31/19 09:03 Urine pH 5.0 (5.0-7.0) 05/31/19 09:03 Ur Specific [place] 1.021 (1.003-1.030) 05/31/19 09:03 Urine Protein <15 mg/dl mg/dL (Negative) 05/31/19 09:03 Urine Glucose (UA) Neg mg/dL (Negative) 05/31/19 09:03 Urine Ketones 20 mg/dL (Negative) 05/31/19 09:03 Urine Blood Neg (Negative) 05/31/19 09:03 Urine Nitrite Neg (Negative) 05/31/19 09:03 Urine Bilirubin Neg (Negative) 05/31/19 09:03 Urine Urobilinogen 4.0 mg/dL (<2.0) 05/31/19 09:03 Ur Leukocyte Esterase Tr (Negative) 05/31/19 09:03 Urine WBC (Auto) 13.0 /HPF (0.0-6.0) H 05/31/19 09:03 Urine RBC (Auto) 2.0 /HPF (0.0-6.0) 05/31/19 09:03 U Epithel Cells (Auto) 1.0 /HPF (0-13.0) 05/31/19 09:03 Urine Bacteria (Auto) 1+ /HPF (Negative) 05/31/19 09:03 Urine Mucus Few /HPF 05/31/19 09:03 Urine Creatinine 113.7 mg/dL (0.1-20.0) H 06/01/19 06:47 Urine Sodium 34 mmol/L 06/01/19 06:47 Active Medications - Current Medications Current Medications: Generic Name Dose Route Start Last Admin Trade Name Freq PRN Reason Stop Dose Admin Acetaminophen 650 mg 05/31/19 10:42 Tylenol PO Q4H PRN Pain MILD(1-3)/Fever >100.5/SANTANA Al Hydrox/Mg Hydrox/Simethicone 30 ml 05/31/19 10:42 Alum-Mag Hydrox-Simeth 311-117-32ry/5ml PO Q4H PRN Indigestion Albuterol 2.5 mg 05/31/19 10:42 Proventil IH Q4H PRN Shortness Of Breath Amlodipine Besylate 5 mg 05/31/19 12:00 06/01/19 11:29 Amlodipine PO 5 mg DAILY [facility]ACE Administration Aspirin 81 mg 06/01/19 10:00 06/01/19 11:29 Halfprin Ec PO 81 mg QDAY [facility] GRACE Administration Budesonide 0.5 mg 05/31/19 20:00 05/31/19 19:45 Pulmicort IH 0.5 mg Q12HRT [facility] Administration Cyclobenzaprine HCl 10 mg 05/31/19 10:44 05/31/19 21:38 Flexeril PO 10 mg QHS PRN Administration Muscle Spasm Cefepime HCl 1 gm in 100 mls @ 200 mls/hr 05/31/19 12:00 06/01/19 11:38 Cefepime/Ns 1 Gm/100 Ml IV 200 mls/hr Q12H [facility] Administration Protocol Sodium Chloride 1,000 mls @ 75 mls/hr 06/01/19 07:00 06/01/19 07:21 Nacl 0.9% 1000 Ml IV 75 mls/hr DIRECT [facility] Administration Morphine Sulfate 2 mg 05/31/19 10:42 06/01/19 07:21 Morphine IV 2 mg Q4H PRN Administration Pain, Moderate (4-6) Naloxone HCl 0.1 mg 05/31/19 10:42 Naloxone IV Q2MIN PRN Res Rate </= 8 or 02 SAT < 92% Ondansetron HCl 4 mg 05/31/19 10:42 Zofran IV Q8H PRN Nausea And Vomiting Pravastatin Sodium 20 mg 05/31/19 22:00 05/31/19 21:39 Pravachol PO 20 mg QHS [facility] Administration Quetiapine Fumarate 100 mg 05/31/19 22:00 05/31/19 21:38 Seroquel PO 100 mg HS [facility]ACE Administration Ropinirole HCl 1 mg 05/31/19 22:00 05/31/19 21:38 Requip PO 1 mg QHS [facility] Administration Sodium Chloride 10 ml 05/31/19 22:00 06/01/19 11:31 Sodium Chloride Flush Syringe 10 Ml IV 10 ml BID [facility] Administration Sodium Chloride 10 ml 05/31/19 10:42 Sodium Chloride Flush Syringe 10 Ml IV PRN PRN LINE FLUSH Tamsulosin HCl 0.4 mg 05/31/19 15:00 06/01/19 11:29 Flomax PO 0.4 mg QDAY [facility] Administration Venlafaxine HCl 150 mg 05/31/19 12:00 06/01/19 11:29 Effexor Xr PO 150 mg QDAY [facility] Administration
--- NOTE | 2019-06-01 15:10 | Progress Note ---
Assessment and Plan This is a 63 year old man with unilateral kidney who presents with flank pain. # MILTON: creatinine 2.2 from 1.4, now improved to 1.7; suspect related to UTI, tubular injury, and pre-renal injury. High risk given presence of unilateral kidney. UA with WBCs, otherwise unremarkable. No imaging abnormalities for stone, etc. No known nephrotoxins (no OTC supplements noted, reviewed home meds) - continue supportive measures including IVF as tolerated and antibiotics for presumed UTI - avoid nephrotoxins - renally dose meds - f/u labs tomorrow # HTN: BP at goal, continue current regimen # Flank Pain: unsure cause, no stone seen on CT. Treat UTI per primary; will follow. Subjective Date of service: 06/01/19 Interval history: No acute events overnight. Continues to have occasional back pain with movement, but generally better. Good urination, no dyspnea or chest pain. No swelling. Objective - Exam Narrative Exam: General appearance: well-developed, well-nourished, appears stated age EENT: PERRL, mucous membranes moist Neck: Present: neck supple Respiratory: Clear to Ascultation Heart: regular, S1S2 Gastrointestinal: Present: normoactive bowel sounds. Absent: tenderness, distended Integumentary: no rash, warm and dry Neurologic: no focal deficit, no asterixis, CN 3-12 intact Psychiatric: mood/affect appropriate - Vital Signs Vital signs: Vital Signs - 12hr 06/01/19 06/01/19 06/01/19 05:20 07:21 11:16 Temperature 98.1 F 97.9 F Pulse Rate 117 H 114 H Respiratory 16 18 20 Rate Blood Pressure 136/80 140/86 O2 Sat by Pulse 94 90 Oximetry 06/01/19 11:29 Temperature Pulse Rate 114 H Respiratory Rate Blood Pressure 140/86 O2 Sat by Pulse Oximetry - Lab 06/01/19 04:35 06/01/19 04:35 Most recent lab results Calcium 8.9 mg/dL (8.4-10.2) 06/01/19 04:35 Urine Creatinine 113.7 mg/dL (0.1-20.0) H 06/01/19 06:47 Urine Sodium 34 mmol/L 06/01/19 06:47 Medications & Allergies - Medications Allergies/Adverse Reactions: Allergies No Known Allergies Allergy (Verified 12/04/18 20:26) Home Medications: Home Medications Medication Instructions Recorded Confirmed Last Taken Type Fluticasone Propionate [Flovent 50 mcg IH PRN 12/04/18 12/04/18 Unknown History Diskus] Pravastatin [Pravachol] 20 mg PO DAILY 12/04/18 12/04/18 Unknown History QUEtiapine [SEROquel] 100 mg PO HS 12/04/18 12/04/18 Unknown History Tamsulosin [Flomax] 0.4 mg PO QDAY 12/04/18 12/04/18 Unknown History Venlafaxine ER 150 mg PO DAILY 12/04/18 12/04/18 Unknown History rOPINIRole [Requip] 1 mg PO QHS 12/04/18 12/04/18 Unknown History Aspirin EC [Halfprin EC] 81 mg PO QDAY #30 tablet. 12/07/18 Unknown Rx amLODIPine 5 mg PO DAILY #30 tab 12/07/18 Unknown Rx Cyclobenzaprine [Flexeril] 10 mg PO QHS PRN #20 tablet 05/13/19 Unknown Rx Ibuprofen [Motrin 800 MG tab] 800 mg PO Q8HR PRN #30 tablet 05/13/19 Unknown Rx Active Medications: Generic Name Dose Route Start Last Admin Trade Name Freq PRN Reason Stop Dose Admin Acetaminophen 650 mg 05/31/19 10:42 Tylenol PO Q4H PRN Pain MILD(1-3)/Fever >100.5/SANTANA Al Hydrox/Mg Hydrox/Simethicone 30 ml 05/31/19 10:42 Alum-Mag Hydrox-Simeth 504-154-23tm/5ml PO Q4H PRN Indigestion Albuterol 2.5 mg 05/31/19 10:42 Proventil IH Q4H PRN Shortness Of Breath Amlodipine Besylate 5 mg 05/31/19 12:00 06/01/19 11:29 Amlodipine PO 5 mg DAILY MARY GRACE Administration Aspirin 81 mg 06/01/19 10:00 06/01/19 11:29 Halfprin Ec PO 81 mg QDAY MARY GRACE Administration Budesonide 0.5 mg 05/31/19 20:00 05/31/19 19:45 Pulmicort IH 0.5 mg Q12HRT MARY GRACE Administration Cyclobenzaprine HCl 10 mg 05/31/19 10:44 05/31/19 21:38 Flexeril PO 10 mg QHS PRN Administration Muscle Spasm Cefepime HCl 1 gm in 100 mls @ 200 mls/hr 05/31/19 12:00 06/01/19 11:38 Cefepime/Ns 1 Gm/100 Ml IV 200 mls/hr Q12H MARY GRACE Administration Protocol Sodium Chloride 1,000 mls @ 75 mls/hr 06/01/19 07:00 06/01/19 07:21 Nacl 0.9% 1000 Ml IV 75 mls/hr DIRECT MARY GRACE Administration Morphine Sulfate 2 mg 05/31/19 10:42 06/01/19 07:21 Morphine IV 2 mg Q4H PRN Administration Pain, Moderate (4-6) Naloxone HCl 0.1 mg 05/31/19 10:42 Naloxone IV Q2MIN PRN Res Rate </= 8 or 02 SAT < 92% Ondansetron HCl 4 mg 05/31/19 10:42 Zofran IV Q8H PRN Nausea And Vomiting Pravastatin Sodium 20 mg 05/31/19 22:00 05/31/19 21:39 Pravachol PO 20 mg QHS MARY GRACE Administration Quetiapine Fumarate 100 mg 05/31/19 22:00 05/31/19 21:38 Seroquel PO 100 mg HS MARY GRACE Administration Ropinirole HCl 1 mg 05/31/19 22:00 05/31/19 21:38 Requip PO 1 mg QHS MARY GRACE Administration Sodium Chloride 10 ml 05/31/19 22:00 06/01/19 11:31 Sodium Chloride Flush Syringe 10 Ml IV 10 ml BID MARY GRACE Administration Sodium Chloride 10 ml 05/31/19 10:42 Sodium Chloride Flush Syringe 10 Ml IV PRN PRN LINE FLUSH Tamsulosin HCl 0.4 mg 05/31/19 15:00 06/01/19 11:29 Flomax PO 0.4 mg QDAY MARY GRACE Administration Venlafaxine HCl 150 mg 05/31/19 12:00 06/01/19 11:29 Effexor Xr PO 150 mg QDAY MARY GRACE Administration
[2019-06-01] MEDS: BUDESONIDE 0.5 MG/2 ML NEBU IH SCH ×2 (15:19→21:17)
[2019-06-01] MEDS: QUEtiapine 100 MG TAB PO SCH (22:36)
[2019-06-01] MEDS: PRAVASTATIN 20 MG TAB PO SCH (22:36)
[2019-06-01] MEDS: rOPINIRole 1 MG TAB PO SCH (22:36)
[2019-06-02] MEDS: CEFEPIME/NS 1 GM/100 ML 1 GM/100 ML BAG IV SCH ×2 (01:21→15:10)
[2019-06-02] MEDS: SODIUM CHLORIDE 0.9% 1000 ML 1,000 ML IV SCH (01:38)
[2019-06-02] MEDS: MORPHINE 2 MG/1 ML INJ IV PRN ×2 (02:04→10:11)
[2019-06-02 07:42] LABS: BUN/Creatinine Ratio 13; Blood Urea Nitrogen 16 mg/dL (9-20); Calcium 8.9 mg/dL (8.4-10.2); Hemolysis Index 11
[2019-06-02] MEDS: VENLAFAXINE XR 75 MG CAP PO SCH (10:02)
[2019-06-02] MEDS: ASPIRIN EC 81 MG TAB PO SCH (10:02)
[2019-06-02] MEDS: TAMSULOSIN 0.4 MG CAP PO SCH (10:04)
[2019-06-02] MEDS: amLODIPine 5 MG TAB PO SCH (10:05)
--- NOTE | 2019-06-02 11:06 | Discharge Summary ---
Providers - Providers Date of Admission: 05/31/19 10:19 Attending physician: KALIN SIDHU MD 05/31/19 10:14 Consult to Physician [CONS] Urgent Comment: Consulting Provider: KEYUR ARREDONDO Physician Instructions: Reason For Exam: renal insufficiency, one kidney 06/01/19 07:02 Consult to Wound/ET Nurse [CONS] Routine Reason For Exam: wound eval Primary care physician: YOLI HE Hospitalization Reason for admission: BACK PAIN Condition: Stable Hospital course: Patient is 63-year-old male with hx of CVA IN 2011, LEFT NEPHRECTOMY (unsure as to why) ?Related to nephrolithasis and hx of Major depressive disorder, KATI, BPH, Bradycardia, hyperlipidemia and anxiety disorder presenting with a chief complaint of right flank pain. The patient states for the past 2-3 days he has had pain in his right flank that has been constant in nature. Patient states his pain increases with certain movements. Patient denies any preceding trauma. Patient denies nausea or vomiting. Patient denies dysuria or hematuria. Patient denies history of fever. The patient gives his pain score of 10/10 * Review of record shows prior visit for the same, was treated with antispasmotic and improved * Imaging studies during this admission is unremarkable except for solitary kidney noted * Counselling to follow with Orthopedic or Neurosurgery to evaluate spine as source of pain * Continue flexril * Nephrology input noted, renal function improved, counselling to avoid meds discussed * UTI treated with abx, * Per patient already has appointment at [facility] in 4 days (1) MILTON (acute kidney injury) Vasomotor nephropathy (2) MDD (major depressive disorder) (3) Acute Cystitis (4) HTN (hypertension) (5) KATI (obstructive sleep apnea) (6) Hyponatremia (7) Bradycardia (8) Low Back pain. Disposition: - TO HOME OR SELFCARE Time spent for discharge: 35 MINS Core Measure Documentation - Palliative Care Palliative Care/ Comfort Measures: Not Applicable - Core Measures Any of the following diagnoses?: none Exam - Physical Exam Narrative exam: General appearance: Present: no acute distress, well-nourished - EENT Eyes: Present: PERRL, EOM intact ENT: hearing intact - Neck Neck: Present: normal ROM - Respiratory Respiratory effort: normal Respiratory: bilateral: CTA - Cardiovascular Rhythm: regular Heart Sounds: Present: S1 & S2. Absent: systolic murmur, diastolic murmur - Extremities Extremities: no ischemia, pulses intact, pulses symmetrical, No edema, normal temperature, normal color, Full ROM Peripheral Pulses: within normal limits - Abdominal General gastrointestinal: Present: soft, tender BUT Much improved, non- distended, normal bowel sounds Localized gastrointestinal: tender: RLQ - Integumentary Integumentary: Present: clear, warm, dry - Musculoskeletal Musculoskeletal: strength equal bilaterally - Psychiatric Psychiatric: appropriate mood/affect, intact judgment & insight, memory intact, cooperative - Neurologic Neurologic: CNII-XII intact, moves all extremities, gait normal - Allied Health Allied health notes reviewed: nursing - Constitutional Vitals: Temp Pulse Resp BP Pulse Ox 97.7 F 114 H 20 162/88 94 06/02/19 06:05 06/02/19 10:05 06/02/19 06:05 06/02/19 10:05 06/02/19 06:05 Plan Activity: advance as tolerated, fall precautions Diet: low fat Special Instructions: record daily weights Additional Instructions: continue with planned appointment at [facility] De[facility] . apply heat to low back Follow up with: GUNJAN QURESHI DO [Referring] - 7 Days YOLI HE MD [Primary Care Provider] - 7 Days KEYUR ARREDONDO MD [Staff Physician] - 7 Days Prescriptions: amLODIPine 10 mg PO DAILY #30 tab
[2019-06-02 15:02] VITALS: BP 149/95
== END 2019-06-02 14:52 | disposition home or self-care (01) ==
LOC: ED 06:44 → 3A 10:19
PROVIDERS: ADMIT Internal Medicine; ATTEND Internal Medicine
DX: N17.9 Acute kidney failure, unspecified (principal); F32.9 Major depressive disorder, single episode, unspecified; N30.00 Acute cystitis without hematuria; I10 Essential (primary) hypertension; G47.33 Obstructive sleep apnea (adult) (pediatric); E87.1 Hypo-osmolality and hyponatremia; R00.1 Bradycardia, unspecified; N40.0 Benign prostatic hyperplasia without lower urinary tract symptoms; F41.9 Anxiety disorder, unspecified; G25.81 Restless legs syndrome; E78.00 Pure hypercholesterolemia, unspecified; Z86.73 Personal history of transient ischemic attack (TIA), and cerebral infarction without residual deficits; Z98.890 Other specified postprocedural states; Z79.82 Long term (current) use of aspirin
CPT/HCPCS: 36415; 74176; 76775; 80048; 80053; 81001; 82570; 84300; 85025; 87086; 94640; 96365; 96366; 96375; 96376; 99284; A9270; G0378; J0692; J2270; J2405; J3010; J7030